=== PATIENT | male | born 1960 | race American Indian/Alaskan Native ===

== ENCOUNTER 2018-08-11 10:16 | Inpatient (IN) | payer MEDICARE, MEDICAID ==
[~2018-08-11] VITALS: Ht 188 cm; Wt 167.8 kg
[2018-08-11] MEDS ORDERED: pantoprazole 40 MG vial IV ONE (10:45)
[2018-08-11 10:50] LABS: ABG BASE EXCESS 11.5 mmol/L (-2.0-3.0); ABG OXYGEN SATURATION 94.7 % (95-98); ABG PCO2 (T) 76.7 mmHg (35.0-48.0); ABG PH (T) 7.324 (7.350-7.450); ALLEN'S TEST Positive; FCOHb 1.3 % (0.5-1.5); FMetHb 0.2 % (0.3-1.12); FO2Hb 93.3 % (94-100); TOTAL HEMOGLOBIN 7.4 G/dl (14.0-18.0)
[2018-08-11] MEDS ORDERED: normal saline 1000ML IV soln IVB ONE ×2 (11:00→11:40)
[2018-08-11 11:23] LABS: MEAN CORPUSCULAR HEMOGLOBIN 29.2 PG (27.0-31.0); MEAN CORPUSCULAR HGB CONC 32.7 % (33.0-36.5); MEAN CORPUSCULAR VOLUME 89.3 FL (78-98); MEAN PLATELET VOLUME 9.6 FL (7.4-10.4); RED BLOOD COUNT 2.33 X10'6 (4.70-6.10); RED CELL DISTRIBUTION WIDTH 15.7 % (11.5-14.5); WHITE BLOOD COUNT 2.3 X10'3 (4.5-11.0)
[2018-08-11 11:27] LABS: CLARITY,URINE SLIGHTLY CLOUDY (Clear); COLOR,URINE YELLOW (Yellow); GLUCOSE, URINE NEGATIVE (Neg); KETONES,URINE TRACE mg/dl (Neg); LEUKOCYTE ESTERASE ,URINE NEGATIVE (Neg); NITRITES, URINE NEGATIVE (Neg); OCCULT BLOOD,URINE SMALL (Neg); PH,URINE 5.5 (4.8-8.0); PROTEIN,URINE NEGATIVE (Neg); UROBILINOGEN,URINE 0.2 E.U/dL (0.2-1.0)
[2018-08-11 11:29] LABS: UA COLLECTION TYPE STRAIGHT CATH
[2018-08-11 11:34] LABS: HEMATOCRIT 20.8 % (42.0-52.0); HEMOGLOBIN 6.8 g/dl (14.0-17.9)
[2018-08-11 11:35] LABS: PLATELET COUNT 15 X10'3 (140-440)
[2018-08-11 11:38] LABS: HYALINE CASTS >30 /LPF (NEGATIVE); SQUAMOUS EPITHELIAL CELL,UR FEW /LPF (FEW)
[2018-08-11 11:39] LABS: BACTERIA,URINE 1+ /HPF (Neg); MUCUS STRANDS FEW /LPF (Neg); RBC,URINE 0-2 /HPF (0-2); RENAL CELLS, URINE FEW /HPF; TRANSITIONAL EPI CELLS,URINE FEW /HPF; WBC,URINE 0-4 /HPF (0-4)
[2018-08-11 11:40] LABS: INR 1.8 INR; PARTIAL THROMBOPLASTIN TIME 40 SECONDS (22-32); PROTHROMBIN TIME 17.8 SECONDS (9.0-12.0)
[2018-08-11 11:41] LABS: URINE AMPHETAMINE SCREEN NEGATIVE (Neg); URINE BARBITUATE SCREEN NEGATIVE (Neg); URINE BENZODIAZEPINES SCREEN NEGATIVE (Neg); URINE CANNABINOID SCREEN NEGATIVE (Neg); URINE COCAINE SCREEN NEGATIVE (Neg); URINE METHADONE SCREEN POSITIVE (Neg); URINE OPIATE SCREEN POSITIVE (Neg); URINE PHENCYCLIDINE SCREEN NEGATIVE (Neg)
[2018-08-11 11:42] LABS: ALANINE AMINOTRANSFERASE 16 U/L (12-78); ALBUMIN 2.5 G/DL (3.4-5.0); ALBUMIN/GLOBULIN RATIO 0.5 (1.1-1.5); ALKALINE PHOSPHATASE 64 IU/L (46-116); ANION GAP -1 (8-16); ASPARTATE AMINO TRANSFERASE 16 U/L (10-37); BILIRUBIN,TOTAL 1.8 MG/DL (0.1-1.0); BLOOD UREA NITROGEN 27 MG/DL (7-18); BUN/CREATININE RATIO 20.9 (5.4-32.0); CALCIUM 8.2 MG/DL (8.5-10.1); CHLORIDE 105 MMOL/L (99-107); CREATININE 1.29 MG/DL (0.60-1.10); POTASSIUM 4.2 MMOL/L (3.5-5.1); SODIUM 142 MMOL/L (135-145); TOTAL CARBON DIOXIDE 37.9 MMOL/L (24-32); TOTAL PROTEIN 7.4 G/DL (6.4-8.2); eGFR 57 ML/MIN
[2018-08-11 11:44] LABS: ANISOCYTOSIS 1+; PLATELET ESTIMATE DECREASED; TOTAL CELLS COUNTED 100
[2018-08-11 11:49] LABS: ACETAMINOPHEN < 2.0 UG/ML (10-30); ETHANOL < 0.010 GM/DL (0.0-0.010); GLUCOSE 104 MG/DL (70-104); MAGNESIUM 1.7 MG/DL (1.5-2.4)
[2018-08-11] MEDS ORDERED: sodium bicarbonate (8.4%) 1 mEq/ml syringe ONE (14:00)
[2018-08-11] MEDS ORDERED: epiNEPHrine 0.1mg/ml 10ml syringe ONE (14:00)
[2018-08-11 14:43] VITALS: BP 148/77
[2018-08-11 15:09] VITALS: BP 102/59
[2018-08-11] MEDS ORDERED: piperacillin/tazo 4.5gm/100ml 100 ML IV ONE (15:35)
[2018-08-11] MEDS ORDERED: piperacillin/tazo 4.5gm/100ml 100 ML IV SCH (15:35)
[2018-08-11 15:54] VITALS: BP 133/53
[2018-08-11 16:14] VITALS: BP_SYST 125; BP_SYST 133; BP_DIAS 53; BP_DIAS 62
[2018-08-11 16:35] VITALS: BP 131/70
[2018-08-11] MEDS ORDERED: mag hydrox/Alum hydrox/simeth 30ml oral suspension PO PRN (16:35)
[2018-08-11] MEDS ORDERED: morphine 2 MG/ML inj. syringe IV PRN ×2 (16:35)
[2018-08-11] MEDS ORDERED: ondansetron/PF 4mg/2ml inj IV PRN (16:35)
[2018-08-11] MEDS ORDERED: magnesium hydroxide 30ml (MOM) UD suspension PO PRN (16:35)
[2018-08-11 17:15] VITALS: BP 125/65
[2018-08-11] MEDS: pantoprazole 40 MG vial IV SCH (20:47)
[2018-08-11] MEDS: lactulose 20gm/30ml cup PO SCH (20:47)
[2018-08-11] MEDS: furosemide 40mg/4ml inj IV SCH (22:19)
[2018-08-11] MEDS: HYDROcodone/acetaminophen 5mg/325mg tablet PO PRN (22:19)
[2018-08-12] VITALS (14 sets, daily range): BP systolic 83–138; BP diastolic 47–86
[2018-08-12 01:40] LABS: ABG BASE EXCESS 3.7 mmol/L (-2.0-3.0); ABG HCO3 33.9 mmol/L (22.0-26.0); ABG OXYGEN SATURATION 91.9 % (95-98); ABG PCO2 (T) 80.1 mmHg (35.0-48.0); ABG PH (T) 7.226 (7.350-7.450); ABG PO2 (T) 61.1 mmHg (83-108); ALLEN'S TEST Positive; FCOHb 1.1 % (0.5-1.5); FMetHb 0.3 % (0.3-1.12); FO2Hb 90.6 % (94-100); MINUTE VOLUME 8 L/min; PATIENT TEMPERATURE 33.7; PEEP 5 cm H2O; RESPIRATORY RATE 14 b/min; RESPIRATORY RATE (OBSERVED) 14 b/min; TIDAL VOLUME 500 mL; TOTAL HEMOGLOBIN 9.9 G/dl (14.0-18.0)
[2018-08-12] MEDS: lactulose 20gm/30ml cup PO SCH ×4 (02:00→20:00)
[2018-08-12] MEDS ORDERED: CISatracurium besylate inj. 200 MG in normal saline 250ml IV soln 180 ML IV PRN (02:42)
[2018-08-12] MEDS ORDERED: CISatracurium **Bolus** 2 mg/ml inj IV PRN (02:45)
[2018-08-12] MEDS: FENTANYL-0.9 % NACL/PF 100 ML IV PRN ×5 (02:53→22:31)
[2018-08-12] MEDS: midazolam 100mg in NS 100ml 100 ML IV PRN ×3 (02:55→17:16)
[2018-08-12 04:16] LABS: ABG HCO3 38.3 mmol/L (22.0-26.0); ABG OXYGEN SATURATION 95.9 % (95-98); ABG PCO2 (T) 78.2 mmHg (35.0-48.0); ABG PH (T) 7.306 (7.350-7.450); ALLEN'S TEST Positive; FCOHb 1.4 % (0.5-1.5); FMetHb 0.1 % (0.3-1.12); FO2Hb 94.5 % (94-100); MINUTE VOLUME 8 L/min; PATIENT TEMPERATURE 36.5; PEEP 5 cm H2O; RESPIRATORY RATE 18 b/min; RESPIRATORY RATE (OBSERVED) 18 b/min; TOTAL HEMOGLOBIN 8.9 G/dl (14.0-18.0)
[2018-08-12 05:23] LABS: BASOPHILS % (AUTO) 0.1 % (0-1); EOSINOPHILS % (AUTO) 0.9 % (0-6); HEMATOCRIT 24.5 % (42.0-52.0); HEMOGLOBIN 8.2 g/dl (14.0-17.9); LYMPHOCYTES # (AUTO) 0.2 X10'3 (1.1-4.8); LYMPHOCYTES % (AUTO) 5.2 % (21-51); MEAN CORPUSCULAR HEMOGLOBIN 29.6 PG (27.0-31.0); MEAN CORPUSCULAR HGB CONC 33.3 % (33.0-36.5); MEAN CORPUSCULAR VOLUME 88.7 FL (78-98); MEAN PLATELET VOLUME 7.8 FL (7.4-10.4); MONOCYTES # (AUTO) 0.7 X10'3 (0-0.9); MONOCYTES % (AUTO) 17.1 % (2-12); NEUTROPHILS # (AUTO) 3.3 X10'3 (1.8-7.7); NEUTROPHILS % (AUTO) 76.7 % (42-75); RED BLOOD COUNT 2.76 X10'6 (4.70-6.10); RED CELL DISTRIBUTION WIDTH 15.7 % (11.5-14.5); WHITE BLOOD COUNT 4.3 X10'3 (4.5-11.0)
[2018-08-12 05:29] LABS: PLATELET COUNT 27 X10'3 (140-440)
[2018-08-12 05:39] LABS: ALANINE AMINOTRANSFERASE 14 U/L (12-78); ALBUMIN 2.6 G/DL (3.4-5.0); ALKALINE PHOSPHATASE 69 IU/L (46-116); ANION GAP 2 (8-16); CHLORIDE 103 MMOL/L (99-107); CREATININE 1.28 MG/DL (0.60-1.10); POTASSIUM 4.4 MMOL/L (3.5-5.1); SODIUM 142 MMOL/L (135-145); TOTAL CARBON DIOXIDE 36.8 MMOL/L (24-32); eGFR 58 ML/MIN
[2018-08-12 05:42] LABS: CREATINE KINASE 62 U/L (39-308); MAGNESIUM 1.5 MG/DL (1.5-2.4); TROPONIN I < 0.04 NG/ML (0.0-0.05)
[2018-08-12 05:44] LABS: INR 1.9 INR; PARTIAL THROMBOPLASTIN TIME 40 SECONDS (22-32)
[2018-08-12 06:06] LABS: ALBUMIN/GLOBULIN RATIO 0.5 (1.1-1.5); BILIRUBIN,TOTAL 3.4 MG/DL (0.1-1.0); BLOOD UREA NITROGEN 27 MG/DL (7-18); BUN/CREATININE RATIO 21.1 (5.4-32.0); CALCIUM 8.5 MG/DL (8.5-10.1); GLUCOSE 136 MG/DL (70-104); PHOSPHORUS 4.7 MG/DL (2.3-4.5); TOTAL PROTEIN 7.6 G/DL (6.4-8.2)
[2018-08-12 06:07] LABS: ASPARTATE AMINO TRANSFERASE 19 U/L (10-37)
[2018-08-12] MEDS: pantoprazole 40 MG vial IV SCH ×2 (08:19→20:00)
[2018-08-12] MEDS: levoFLOXACIN-Levaquin 750MG/D5 150 ML IV SCH (08:19)
[2018-08-12] MEDS: furosemide 40mg/4ml inj IV SCH ×2 (08:19→20:01)
[2018-08-12 09:41] LABS: OXYGEN SATURATION (MIXED VEN) 65.8 % (60-80); PO2 MIXED VENOUS (TEMP COR) 29.6 mmHg (35-46)
[2018-08-12 10:07] LABS: ABG BASE EXCESS 6.4 mmol/L (-2.0-3.0); ABG HCO3 34.3 mmol/L (22.0-26.0); ABG OXYGEN SATURATION 90.5 % (95-98); ABG PCO2 (T) 64.4 mmHg (35.0-48.0); ABG PH (T) 7.329 (7.350-7.450); ABG PO2 (T) 54.1 mmHg (83-108); ALLEN'S TEST Positive; FCOHb 1.5 % (0.5-1.5); FMetHb 0.2 % (0.3-1.12); MINUTE VOLUME 5 L/min; PATIENT TEMPERATURE 33.9; PEEP 5 cm H2O; RESPIRATORY RATE 18 b/min; RESPIRATORY RATE (OBSERVED) 18 b/min; TOTAL HEMOGLOBIN 8.5 G/dl (14.0-18.0)
[2018-08-12 10:42] LABS: OCCULT BLOOD STOOL POSITIVE (Neg)
[2018-08-12 11:32] LABS: ALBUMIN 2.6 G/DL (3.4-5.0); ANION GAP 0 (8-16); BLOOD UREA NITROGEN 28 MG/DL (7-18); BUN/CREATININE RATIO 20.1 (5.4-32.0); CALCIUM 8.3 MG/DL (8.5-10.1); CHLORIDE 102 MMOL/L (99-107); CREATINE KINASE 61 U/L (39-308); CREATININE 1.39 MG/DL (0.60-1.10); MAGNESIUM 1.5 MG/DL (1.5-2.4); POTASSIUM 4.1 MMOL/L (3.5-5.1); SODIUM 140 MMOL/L (135-145); TOTAL CARBON DIOXIDE 37.6 MMOL/L (24-32); TROPONIN I 0.04 NG/ML (0.0-0.05); eGFR 52 ML/MIN
[2018-08-12 11:34] LABS: GLUCOSE 143 MG/DL (70-104)
[2018-08-12] MEDS ORDERED: FLU VACC QUAD 2018(5 YR UP)/PF 60 MCG/0.5 ML SYRINGE IM ONE (17:00)
[2018-08-12] MEDS ORDERED: DOCU1ENE3 RC (17:07)
[2018-08-12] MEDS ORDERED: ZIN220C PO (17:07)
[2018-08-12] MEDS ORDERED: HYDR-3965 PO (17:07)
[2018-08-12] MEDS ORDERED: PROP10TA10 PO (17:07)
[2018-08-12] MEDS ORDERED: MAGN70TA2 PO (17:07)
[2018-08-12] MEDS ORDERED: LIDOCAINE 4% TOP (17:07)
[2018-08-12] MEDS ORDERED: SODI30SP3 BOTHNARES (17:07)
[2018-08-12] MEDS ORDERED: SODI473S26 MC (17:07)
[2018-08-12] MEDS ORDERED: POLY17PO10 PO (17:07)
[2018-08-12] MEDS ORDERED: QUET25TA PO (17:07)
[2018-08-12] MEDS ORDERED: PANT-47 PO (17:07)
[2018-08-12] MEDS ORDERED: FURO-149 PO (17:07)
[2018-08-12] MEDS ORDERED: RIFA550T PO (17:07)
[2018-08-12] MEDS ORDERED: LORA2TAB96 PO (17:07)
[2018-08-12] MEDS ORDERED: MELA3TAB PO (17:07)
[2018-08-12] MEDS ORDERED: LACT10SO PO (17:07)
[2018-08-12] MEDS ORDERED: FLO0.4C PO (17:07)
[2018-08-12 17:10] LABS: OXYGEN SATURATION (MIXED VEN) 41.3 % (60-80); PO2 MIXED VENOUS (TEMP COR) 14.5 mmHg (35-46)
[2018-08-12 17:15] LABS: ABG BASE EXCESS 9.8 mmol/L (-2.0-3.0); ABG HCO3 32.3 mmol/L (22.0-26.0); ABG OXYGEN SATURATION 95.1 % (95-98); ABG PCO2 (T) 29.7 mmHg (35.0-48.0); ABG PH (T) 7.644 (7.350-7.450); ABG PO2 (T) 51.5 mmHg (83-108); ALLEN'S TEST Positive; FCOHb 1.1 % (0.5-1.5); FMetHb 0.3 % (0.3-1.12); FO2Hb 93.8 % (94-100); MINUTE VOLUME 16 L/min; PATIENT TEMPERATURE 33.5; PEEP 5 cm H2O; RESPIRATORY RATE (OBSERVED) 18 b/min; TOTAL HEMOGLOBIN 7.8 G/dl (14.0-18.0)
[2018-08-12 20:28] LABS: ALBUMIN 2.3 G/DL (3.4-5.0); ANION GAP 4 (8-16); BLOOD UREA NITROGEN 28 MG/DL (7-18); BUN/CREATININE RATIO 18.3 (5.4-32.0); CALCIUM 8.1 MG/DL (8.5-10.1); CHLORIDE 103 MMOL/L (99-107); CREATINE KINASE 68 U/L (39-308); CREATININE 1.53 MG/DL (0.60-1.10); MAGNESIUM 1.3 MG/DL (1.5-2.4); POTASSIUM 3.4 MMOL/L (3.5-5.1); SODIUM 142 MMOL/L (135-145); TOTAL CARBON DIOXIDE 34.8 MMOL/L (24-32); TROPONIN I < 0.04 NG/ML (0.0-0.05); eGFR 47 ML/MIN
[2018-08-12 20:33] LABS: GLUCOSE 116 MG/DL (70-104)
[2018-08-13] VITALS (29 sets, daily range): BP systolic 95–135; BP diastolic 46–81
[2018-08-13 00:31] LABS: OXYGEN SATURATION (MIXED VEN) 43.9 % (60-80); PO2 MIXED VENOUS (TEMP COR) 19.5 mmHg (35-46)
[2018-08-13 00:31] LABS: ABG BASE EXCESS 8.4 mmol/L (-2.0-3.0); ABG HCO3 34.3 mmol/L (22.0-26.0); ABG OXYGEN SATURATION 94.2 % (95-98); ABG PH (T) 7.455 (7.350-7.450); ABG PO2 (T) 60.7 mmHg (83-108); ALLEN'S TEST Positive; FCOHb 0.4 % (0.5-1.5); FMetHb 0.2 % (0.3-1.12); FO2Hb 93.6 % (94-100); MINUTE VOLUME 6 L/min; PATIENT TEMPERATURE 33.2; PEEP 5 cm H2O; RESPIRATORY RATE 14 b/min; RESPIRATORY RATE (OBSERVED) 14 b/min; TOTAL HEMOGLOBIN 8.2 G/dl (14.0-18.0)
[2018-08-13 01:44] LABS: ALBUMIN 2.3 G/DL (3.4-5.0); ANION GAP 3 (8-16); BLOOD UREA NITROGEN 30 MG/DL (7-18); BUN/CREATININE RATIO 19.6 (5.4-32.0); CALCIUM 8.4 MG/DL (8.5-10.1); CHLORIDE 104 MMOL/L (99-107); CREATINE KINASE 73 U/L (39-308); CREATININE 1.53 MG/DL (0.60-1.10); MAGNESIUM 1.4 MG/DL (1.5-2.4); POTASSIUM 3.3 MMOL/L (3.5-5.1); SODIUM 141 MMOL/L (135-145); TOTAL CARBON DIOXIDE 34.3 MMOL/L (24-32); TROPONIN I < 0.04 NG/ML (0.0-0.05); eGFR 47 ML/MIN
[2018-08-13 01:50] LABS: GLUCOSE 116 MG/DL (70-104)
[2018-08-13] MEDS: lactulose 20gm/30ml cup PO SCH ×4 (02:02→19:58)
[2018-08-13 03:52] LABS: BASOPHILS % (AUTO) 0.7 % (0-1); EOSINOPHILS % (AUTO) 1.5 % (0-6); HEMOGLOBIN 7.2 g/dl (14.0-17.9); LYMPHOCYTES # (AUTO) 0.3 X10'3 (1.1-4.8); LYMPHOCYTES % (AUTO) 16.1 % (21-51); MEAN CORPUSCULAR HEMOGLOBIN 29.5 PG (27.0-31.0); MEAN CORPUSCULAR HGB CONC 33.6 % (33.0-36.5); MEAN CORPUSCULAR VOLUME 87.8 FL (78-98); MEAN PLATELET VOLUME 8.6 FL (7.4-10.4); MONOCYTES # (AUTO) 0.4 X10'3 (0-0.9); MONOCYTES % (AUTO) 20.9 % (2-12); NEUTROPHILS % (AUTO) 60.8 % (42-75); RED BLOOD COUNT 2.45 X10'6 (4.70-6.10); RED CELL DISTRIBUTION WIDTH 15.8 % (11.5-14.5); WHITE BLOOD COUNT 1.7 X10'3 (4.5-11.0)
[2018-08-13 04:08] LABS: INR 2.4 INR; PARTIAL THROMBOPLASTIN TIME 51 SECONDS (22-32)
[2018-08-13 04:26] LABS: HEMATOCRIT 21.5 % (42.0-52.0); PLATELET COUNT 15 X10'3 (140-440)
[2018-08-13] MEDS: FENTANYL-0.9 % NACL/PF 100 ML IV PRN ×2 (04:53→16:31)
[2018-08-13 05:02] LABS: TOTAL CELLS COUNTED 100
[2018-08-13 05:03] LABS: PLATELET ESTIMATE DECREASED
[2018-08-13 05:05] LABS: ANISOCYTOSIS 1+; ELLIPTOCYTES FEW; TEAR DROP CELLS FEW
[2018-08-13] MEDS: pantoprazole 40 MG vial IV SCH ×2 (07:32→19:58)
[2018-08-13] MEDS: mineral oil/petrolatum ophthal oint EACHEYE SCH ×3 (07:32→20:07)
[2018-08-13] MEDS: furosemide 40mg/4ml inj IV SCH ×2 (07:32→19:58)
[2018-08-13] MEDS: levoFLOXACIN-Levaquin 750MG/D5 150 ML IV SCH (07:33)
[2018-08-13] MEDS: midazolam 100mg in NS 100ml 100 ML IV PRN (12:35)
[2018-08-13 14:56] LABS: ABG BASE EXCESS 12.2 mmol/L (-2.0-3.0); ABG HCO3 36.2 mmol/L (22.0-26.0); ABG OXYGEN SATURATION 92.5 % (95-98); ABG PCO2 (T) 41.2 mmHg (35.0-48.0); ABG PH (T) 7.554 (7.350-7.450); ABG PO2 (T) 55.1 mmHg (83-108); ALLEN'S TEST Positive; FCOHb 0.2 % (0.5-1.5); FMetHb 0.1 % (0.3-1.12); FO2Hb 92.2 % (94-100); MINUTE VOLUME 9 L/min; PEEP 5 cm H2O; RESPIRATORY RATE 14 b/min; TOTAL HEMOGLOBIN 7.9 G/dl (14.0-18.0)
[2018-08-13 15:00] LABS: OXYGEN SATURATION (MIXED VEN) 74.9 % (60-80); PO2 MIXED VENOUS (TEMP COR) 30.8 mmHg (35-46)
[2018-08-13 19:57] LABS: BASOPHILS % (AUTO) 0.6 % (0-1); EOSINOPHILS % (AUTO) 0.6 % (0-6); HEMOGLOBIN 7.2 g/dl (14.0-17.9); LYMPHOCYTES # (AUTO) 0.1 X10'3 (1.1-4.8); LYMPHOCYTES % (AUTO) 5.4 % (21-51); MEAN CORPUSCULAR HEMOGLOBIN 29.2 PG (27.0-31.0); MEAN CORPUSCULAR HGB CONC 33.7 % (33.0-36.5); MEAN CORPUSCULAR VOLUME 86.6 FL (78-98); MONOCYTES # (AUTO) 0.4 X10'3 (0-0.9); MONOCYTES % (AUTO) 19.8 % (2-12); NEUTROPHILS # (AUTO) 1.4 X10'3 (1.8-7.7); NEUTROPHILS % (AUTO) 73.6 % (42-75); RED BLOOD COUNT 2.46 X10'6 (4.70-6.10); RED CELL DISTRIBUTION WIDTH 15.3 % (11.5-14.5); WHITE BLOOD COUNT 1.9 X10'3 (4.5-11.0)
[2018-08-13 20:14] LABS: ALANINE AMINOTRANSFERASE 14 U/L (12-78); ALBUMIN 2.3 G/DL (3.4-5.0); ALBUMIN/GLOBULIN RATIO 0.5 (1.1-1.5); ALKALINE PHOSPHATASE 60 IU/L (46-116); ANION GAP 4 (8-16); ASPARTATE AMINO TRANSFERASE 20 U/L (10-37); BILIRUBIN,TOTAL 3.1 MG/DL (0.1-1.0); BLOOD UREA NITROGEN 34 MG/DL (7-18); BUN/CREATININE RATIO 18.1 (5.4-32.0); CALCIUM 8.6 MG/DL (8.5-10.1); CHLORIDE 103 MMOL/L (99-107); CREATINE KINASE 49 U/L (39-308); CREATININE 1.88 MG/DL (0.60-1.10); MAGNESIUM 1.2 MG/DL (1.5-2.4); POTASSIUM 3.3 MMOL/L (3.5-5.1); SODIUM 142 MMOL/L (135-145); TOTAL CARBON DIOXIDE 34.6 MMOL/L (24-32); TOTAL PROTEIN 6.6 G/DL (6.4-8.2); eGFR 37 ML/MIN
[2018-08-13 20:16] LABS: HEMATOCRIT 21.3 % (42.0-52.0)
[2018-08-13 20:17] LABS: PLATELET COUNT 35 X10'3 (140-440)
[2018-08-13 20:26] LABS: GLUCOSE 84 MG/DL (70-104)
[2018-08-13] MEDS ORDERED: sodium phosphate inj. 30 MMOL in dextrose 5%-water 250 ML IV ONE (20:35)
[2018-08-13] MEDS: magnesium 2GM in 50ml NS 50 ML IV PRN (21:47)
[2018-08-14] VITALS (27 sets, daily range): BP systolic 100–143; BP diastolic 49–77
[2018-08-14 00:04] LABS: TOTAL CELLS COUNTED 100
[2018-08-14 00:05] LABS: ANISOCYTOSIS 1+; ELLIPTOCYTES FEW; PLATELET ESTIMATE DECREASED; TEAR DROP CELLS FEW
[2018-08-14] MEDS: midazolam 100mg in NS 100ml 100 ML IV PRN (01:19)
[2018-08-14] MEDS: FENTANYL-0.9 % NACL/PF 100 ML IV PRN (01:20)
[2018-08-14] MEDS: lactulose 20gm/30ml cup PO SCH ×4 (02:22→20:22)
[2018-08-14] MEDS: mineral oil/petrolatum ophthal oint EACHEYE SCH ×4 (02:22→20:23)
[2018-08-14 03:50] LABS: ABG BASE EXCESS 12.5 mmol/L (-2.0-3.0); ABG HCO3 36.8 mmol/L (22.0-26.0); ABG PCO2 (T) 46.8 mmHg (35.0-48.0); ABG PH (T) 7.513 (7.350-7.450); ABG PO2 (T) 74.8 mmHg (83-108); ALLEN'S TEST Positive; FCOHb 0.3 % (0.5-1.5); FMetHb 0.2 % (0.3-1.12); FO2Hb 94.5 % (94-100); MINUTE VOLUME 10 L/min; PATIENT TEMPERATURE 36.7; PEEP 5 cm H2O; RESPIRATORY RATE 14 b/min; RESPIRATORY RATE (OBSERVED) 14 b/min; TOTAL HEMOGLOBIN 8.1 G/dl (14.0-18.0)
[2018-08-14 03:59] LABS: HEMATOCRIT 22.2 % (42.0-52.0); HEMOGLOBIN 7.4 g/dl (14.0-17.9); MEAN CORPUSCULAR HEMOGLOBIN 29.2 PG (27.0-31.0); MEAN CORPUSCULAR HGB CONC 33.4 % (33.0-36.5); MEAN CORPUSCULAR VOLUME 87.3 FL (78-98); MEAN PLATELET VOLUME 8.3 FL (7.4-10.4); RED BLOOD COUNT 2.54 X10'6 (4.70-6.10); RED CELL DISTRIBUTION WIDTH 15.3 % (11.5-14.5); WHITE BLOOD COUNT 2.8 X10'3 (4.5-11.0)
[2018-08-14 04:19] LABS: ALBUMIN 2.3 G/DL (3.4-5.0); ANION GAP 2 (8-16); BLOOD UREA NITROGEN 33 MG/DL (7-18); CALCIUM 8.4 MG/DL (8.5-10.1); CHLORIDE 105 MMOL/L (99-107); CREATINE KINASE 37 U/L (39-308); CREATININE 1.94 MG/DL (0.60-1.10); PHOSPHORUS 2.3 MG/DL (2.3-4.5); POTASSIUM 3.1 MMOL/L (3.5-5.1); SODIUM 143 MMOL/L (135-145); TOTAL CARBON DIOXIDE 35.9 MMOL/L (24-32); eGFR 36 ML/MIN
[2018-08-14 04:24] LABS: PLATELET COUNT 42 X10'3 (140-440)
[2018-08-14 04:44] LABS: GLUCOSE 101 MG/DL (70-104); INR 2.1 INR; PARTIAL THROMBOPLASTIN TIME 46 SECONDS (22-32); PROTHROMBIN TIME 20.9 SECONDS (9.0-12.0)
[2018-08-14 05:47] LABS: ANISOCYTOSIS 1+; PLATELET ESTIMATE DECREASED; TOTAL CELLS COUNTED 100
[2018-08-14 05:48] LABS: ELLIPTOCYTES FEW; POLYCHROMASIA FEW; TEAR DROP CELLS FEW
[2018-08-14 06:59] LABS: MAGNESIUM 1.7 MG/DL (1.5-2.4)
[2018-08-14] MEDS: furosemide 40mg/4ml inj IV SCH ×3 (08:00→20:23)
[2018-08-14] MEDS: pantoprazole 40 MG vial IV SCH ×2 (08:15→20:23)
[2018-08-14] MEDS: levoFLOXACIN-Levaquin 750MG/D5 150 ML IV SCH (08:15)
[2018-08-14] MEDS ORDERED: potassium Cl oral solution 20 MEQ/15 ML PO ONE (08:30)
[2018-08-14 11:30] LABS: TOTAL PROTEIN,URINE RANDOM 30.2 MG/DL
[2018-08-14] MEDS: phytonadione inj. 10 MG in normal saline 100ml IV soln 99 ML IV SCH (11:51)
[2018-08-14] MEDS: metoclopramide 5 mg/ml inj IV SCH ×2 (15:56→23:55)
[2018-08-14 16:35] LABS: HEMATOCRIT 24.7 % (42.0-52.0); HEMOGLOBIN 8.3 g/dl (14.0-17.9); MEAN CORPUSCULAR HEMOGLOBIN 29.3 PG (27.0-31.0); MEAN CORPUSCULAR HGB CONC 33.5 % (33.0-36.5); MEAN CORPUSCULAR VOLUME 87.5 FL (78-98); MEAN PLATELET VOLUME 7.9 FL (7.4-10.4); RED BLOOD COUNT 2.82 X10'6 (4.70-6.10); RED CELL DISTRIBUTION WIDTH 16.1 % (11.5-14.5); WHITE BLOOD COUNT 3.7 X10'3 (4.5-11.0)
[2018-08-14 16:47] LABS: PLATELET COUNT 46 X10'3 (140-440)
[2018-08-14] MEDS ORDERED: midazolam 2 mg/2 ml injection IV PRN (16:50)
[2018-08-14] MEDS: potassium Cl oral solution 20 MEQ/15 ML PO SCH (20:22)
[2018-08-15] VITALS (26 sets, daily range): BP systolic 94–123; BP diastolic 42–81
[2018-08-15] MEDS: mineral oil/petrolatum ophthal oint EACHEYE SCH ×4 (02:04→21:22)
[2018-08-15] MEDS: lactulose 20gm/30ml cup PO SCH ×4 (02:04→21:23)
[2018-08-15 02:54] LABS: HEMATOCRIT 22.1 % (42.0-52.0); HEMOGLOBIN 7.3 g/dl (14.0-17.9); MEAN CORPUSCULAR HEMOGLOBIN 28.9 PG (27.0-31.0); MEAN CORPUSCULAR VOLUME 87.6 FL (78-98); MEAN PLATELET VOLUME 7.8 FL (7.4-10.4); RED BLOOD COUNT 2.53 X10'6 (4.70-6.10); RED CELL DISTRIBUTION WIDTH 15.8 % (11.5-14.5); WHITE BLOOD COUNT 3.2 X10'3 (4.5-11.0)
[2018-08-15 03:05] LABS: PLATELET COUNT 43 X10'3 (140-440)
[2018-08-15 03:14] LABS: ALBUMIN 2.1 G/DL (3.4-5.0); ANION GAP 3 (8-16); BLOOD UREA NITROGEN 35 MG/DL (7-18); BUN/CREATININE RATIO 17.2 (5.4-32.0); CALCIUM 8.4 MG/DL (8.5-10.1); CHLORIDE 107 MMOL/L (99-107); CREATININE 2.04 MG/DL (0.60-1.10); PHOSPHORUS 2.6 MG/DL (2.3-4.5); POTASSIUM 3.1 MMOL/L (3.5-5.1); SODIUM 146 MMOL/L (135-145); TOTAL CARBON DIOXIDE 35.7 MMOL/L (24-32); eGFR 34 ML/MIN
[2018-08-15 03:18] LABS: PARTIAL THROMBOPLASTIN TIME 45 SECONDS (22-32); PROTHROMBIN TIME 19.7 SECONDS (9.0-12.0)
[2018-08-15 03:28] LABS: GLUCOSE 120 MG/DL (70-104)
[2018-08-15 04:26] LABS: ABG BASE EXCESS 10.9 mmol/L (-2.0-3.0); ABG HCO3 34.4 mmol/L (22.0-26.0); ABG OXYGEN SATURATION 94.1 % (95-98); ABG PCO2 (T) 42.9 mmHg (35.0-48.0); ABG PH (T) 7.526 (7.350-7.450); ALLEN'S TEST Positive; FCOHb 0.3 % (0.5-1.5); FMetHb 0.1 % (0.3-1.12); FO2Hb 93.7 % (94-100); MINUTE VOLUME 13 L/min; PATIENT TEMPERATURE 37.8; PEEP 5 cm H2O; RESPIRATORY RATE 14 b/min; RESPIRATORY RATE (OBSERVED) 15 b/min; TOTAL HEMOGLOBIN 7.8 G/dl (14.0-18.0)
[2018-08-15] MEDS ORDERED: potassium Cl 40MEQ/250ML bag 250 ML IV ONE (04:45)
[2018-08-15 05:06] LABS: ANISOCYTOSIS 1+; NUCLEATED RED BLOOD CELLS 1 /100WBC (0-0); PLATELET ESTIMATE DECREASED; TOTAL CELLS COUNTED 100
[2018-08-15 05:07] LABS: POLYCHROMASIA FEW
[2018-08-15] MEDS: potassium Cl oral solution 20 MEQ/15 ML PO SCH ×2 (08:37→21:23)
[2018-08-15] MEDS: pantoprazole 40 MG vial IV SCH ×2 (08:37→21:23)
[2018-08-15] MEDS: levoFLOXACIN-Levaquin 750MG/D5 150 ML IV SCH (08:37)
[2018-08-15] MEDS: metoclopramide 5 mg/ml inj IV SCH (08:37)
[2018-08-15] MEDS: phytonadione inj. 10 MG in normal saline 100ml IV soln 99 ML IV SCH (10:07)
[2018-08-15] MEDS: furosemide 40mg/4ml inj IV SCH (11:15)
[2018-08-15] MEDS: fentaNYL/PF 50MCG/1 ML 2ML syringe IV PRN (11:16)
[2018-08-15] MEDS: dexmedetomidin/NS 400mcg/100ml 100 ML IV SCH (13:26)
[2018-08-15 14:51] LABS: OCCULT BLOOD STOOL NEGATIVE (Neg)
[2018-08-15] MEDS: furosemide 10 MG/1 ML 10ml inj IV SCH ×2 (15:57→23:36)
[2018-08-15 17:02] LABS: HEMATOCRIT 23.1 % (42.0-52.0); HEMOGLOBIN 7.7 g/dl (14.0-17.9); MEAN CORPUSCULAR HEMOGLOBIN 29.5 PG (27.0-31.0); MEAN CORPUSCULAR HGB CONC 33.3 % (33.0-36.5); MEAN CORPUSCULAR VOLUME 88.7 FL (78-98); MEAN PLATELET VOLUME 8.9 FL (7.4-10.4); RED CELL DISTRIBUTION WIDTH 16.4 % (11.5-14.5); WHITE BLOOD COUNT 2.1 X10'3 (4.5-11.0)
[2018-08-15 17:14] LABS: PLATELET COUNT 27 X10'3 (140-440)
[2018-08-15] MEDS ORDERED: magnesium 2GM in 50ml NS 50 ML IV PRN (17:50)
[2018-08-15] MEDS ORDERED: potassium Cl 20 mEq SR tablet PO PRN ×2 (17:50)
[2018-08-15] MEDS ORDERED: magnesium 4gm in 100ml NS 100 ML IV PRN (17:50)
[2018-08-15] MEDS: potassium Cl 40MEQ/250ML bag 250 ML IV PRN (20:38)
[2018-08-16] VITALS (24 sets, daily range): BP systolic 91–111; BP diastolic 52–70
[2018-08-16] MEDS: lactulose 20gm/30ml cup PO SCH ×4 (02:00→20:53)
[2018-08-16 02:42] LABS: HEMATOCRIT 23.7 % (42.0-52.0); HEMOGLOBIN 7.9 g/dl (14.0-17.9); MEAN CORPUSCULAR HEMOGLOBIN 29.7 PG (27.0-31.0); MEAN CORPUSCULAR HGB CONC 33.4 % (33.0-36.5); MEAN CORPUSCULAR VOLUME 88.7 FL (78-98); MEAN PLATELET VOLUME 9.2 FL (7.4-10.4); RED BLOOD COUNT 2.68 X10'6 (4.70-6.10); RED CELL DISTRIBUTION WIDTH 16.4 % (11.5-14.5); WHITE BLOOD COUNT 1.9 X10'3 (4.5-11.0)
[2018-08-16 02:45] LABS: PLATELET COUNT 27 X10'3 (140-440)
[2018-08-16 02:54] LABS: ANION GAP 4 (8-16); BLOOD UREA NITROGEN 37 MG/DL (7-18); BUN/CREATININE RATIO 19.2 (5.4-32.0); CALCIUM 8.1 MG/DL (8.5-10.1); CHLORIDE 110 MMOL/L (99-107); CREATININE 1.93 MG/DL (0.60-1.10); MAGNESIUM 1.5 MG/DL (1.5-2.4); PHOSPHORUS 2.5 MG/DL (2.3-4.5); POTASSIUM 3.1 MMOL/L (3.5-5.1); PREALBUMIN 6.4 MG/DL (19-36); SODIUM 148 MMOL/L (135-145); TOTAL CARBON DIOXIDE 34.1 MMOL/L (24-32); eGFR 36 ML/MIN
[2018-08-16 03:03] LABS: INR 1.9 INR; PARTIAL THROMBOPLASTIN TIME 45 SECONDS (22-32); PROTHROMBIN TIME 18.3 SECONDS (9.0-12.0)
[2018-08-16 03:07] LABS: GLUCOSE 128 MG/DL (70-104)
[2018-08-16 03:26] LABS: ABG HCO3 36.1 mmol/L (22.0-26.0); ABG OXYGEN SATURATION 95.4 % (95-98); ABG PCO2 (T) 50.9 mmHg (35.0-48.0); ABG PH (T) 7.466 (7.350-7.450); ABG PO2 (T) 82.9 mmHg (83-108); ALLEN'S TEST Positive; FCOHb 0.3 % (0.5-1.5); FO2Hb 95.1 % (94-100); MINUTE VOLUME 10 L/min; PATIENT TEMPERATURE 36.4; PEEP 5 cm H2O; RESPIRATORY RATE 14 b/min; RESPIRATORY RATE (OBSERVED) 14 b/min; TOTAL HEMOGLOBIN 8.6 G/dl (14.0-18.0)
[2018-08-16] MEDS: mineral oil/petrolatum ophthal oint EACHEYE SCH ×4 (03:34→20:54)
[2018-08-16 03:55] LABS: TOTAL CELLS COUNTED 100
[2018-08-16 03:56] LABS: ANISOCYTOSIS 1+; PLATELET ESTIMATE DECREASED; POLYCHROMASIA FEW
[2018-08-16] MEDS: potassium Cl 40MEQ/250ML bag 250 ML IV PRN (04:48)
[2018-08-16] MEDS: dexmedetomidin/NS 400mcg/100ml 100 ML IV SCH ×3 (04:52→16:06)
[2018-08-16] MEDS: levoFLOXACIN-Levaquin 750MG/D5 150 ML IV SCH (08:30)
[2018-08-16] MEDS: pantoprazole 40 MG vial IV SCH ×2 (08:31→20:54)
[2018-08-16] MEDS: potassium Cl oral solution 20 MEQ/15 ML PO SCH ×2 (08:32→20:54)
[2018-08-16] MEDS: furosemide 10 MG/1 ML 10ml inj IV SCH ×2 (08:32→16:04)
[2018-08-16] MEDS: phytonadione inj. 10 MG in normal saline 100ml IV soln 99 ML IV SCH (09:46)
[2018-08-16] MEDS: fentaNYL/PF 50MCG/1 ML 2ML syringe IV PRN (14:24)
[2018-08-16 15:25] LABS: HEMATOCRIT 24.8 % (42.0-52.0); HEMOGLOBIN 8.2 g/dl (14.0-17.9); MEAN CORPUSCULAR HEMOGLOBIN 29.4 PG (27.0-31.0); MEAN CORPUSCULAR VOLUME 89.2 FL (78-98); MEAN PLATELET VOLUME 8.8 FL (7.4-10.4); RED BLOOD COUNT 2.78 X10'6 (4.70-6.10); RED CELL DISTRIBUTION WIDTH 16.4 % (11.5-14.5); WHITE BLOOD COUNT 2.3 X10'3 (4.5-11.0)
[2018-08-16 15:35] LABS: PLATELET COUNT 27 X10'3 (140-440)
[2018-08-16] MEDS: nystatin 15 GM powder TP SCH ×2 (16:04→21:37)
[2018-08-17] VITALS (26 sets, daily range): BP systolic 75–116; BP diastolic 45–84
[2018-08-17] MEDS: furosemide 10 MG/1 ML 10ml inj IV SCH ×3 (00:49→16:09)
[2018-08-17] MEDS: lactulose 20gm/30ml cup PO SCH ×4 (02:33→20:39)
[2018-08-17] MEDS: mineral oil/petrolatum ophthal oint EACHEYE SCH ×4 (02:33→20:40)
[2018-08-17] MEDS: fentaNYL/PF 50MCG/1 ML 2ML syringe IV PRN ×2 (03:08→17:25)
[2018-08-17 03:26] LABS: HEMATOCRIT 26.8 % (42.0-52.0); HEMOGLOBIN 8.7 g/dl (14.0-17.9); MEAN CORPUSCULAR HEMOGLOBIN 29.3 PG (27.0-31.0); MEAN CORPUSCULAR HGB CONC 32.6 % (33.0-36.5); MEAN CORPUSCULAR VOLUME 89.9 FL (78-98); MEAN PLATELET VOLUME 9.2 FL (7.4-10.4); RED BLOOD COUNT 2.98 X10'6 (4.70-6.10); RED CELL DISTRIBUTION WIDTH 16.6 % (11.5-14.5); WHITE BLOOD COUNT 2.5 X10'3 (4.5-11.0)
[2018-08-17 03:30] LABS: PLATELET COUNT 29 X10'3 (140-440)
[2018-08-17 03:32] LABS: MAGNESIUM 1.5 MG/DL (1.5-2.4); POTASSIUM 3.6 MMOL/L (3.5-5.1)
[2018-08-17 03:50] LABS: ABG BASE EXCESS 10.8 mmol/L (-2.0-3.0); ABG HCO3 35.5 mmol/L (22.0-26.0); ABG OXYGEN SATURATION 93.1 % (95-98); ABG PCO2 (T) 47.2 mmHg (35.0-48.0); ABG PH (T) 7.493 (7.350-7.450); ABG PO2 (T) 67.3 mmHg (83-108); ALLEN'S TEST Positive; FCOHb 0.3 % (0.5-1.5); FMetHb 0.2 % (0.3-1.12); FO2Hb 92.6 % (94-100); MINUTE VOLUME 9 L/min; PATIENT TEMPERATURE 36.5; PEEP 5 cm H2O; RESPIRATORY RATE 14 b/min; RESPIRATORY RATE (OBSERVED) 14 b/min; TOTAL HEMOGLOBIN 9.7 G/dl (14.0-18.0)
[2018-08-17] MEDS: dexmedetomidin/NS 400mcg/100ml 100 ML IV SCH ×4 (05:00→21:25)
[2018-08-17] MEDS: nystatin 15 GM powder TP SCH ×3 (07:55→21:25)
[2018-08-17] MEDS: pantoprazole 40 MG vial IV SCH ×2 (07:56→20:40)
[2018-08-17] MEDS: levoFLOXACIN-Levaquin 750MG/D5 150 ML IV SCH (07:56)
[2018-08-17] MEDS: potassium Cl oral solution 20 MEQ/15 ML PO SCH ×2 (07:57→20:40)
[2018-08-17] MEDS: methylnaltrexone br 12mg/0.6ml inj***SubQ only SQ SCH (07:57)
[2018-08-17] MEDS ORDERED: etomidate 2mg/ml inj. ONE (09:00)
[2018-08-17 10:30] LABS: ALANINE AMINOTRANSFERASE 13 U/L (12-78); ALBUMIN 2.1 G/DL (3.4-5.0); ALBUMIN/GLOBULIN RATIO 0.4 (1.1-1.5); ALKALINE PHOSPHATASE 77 IU/L (46-116); ANION GAP 5 (8-16); ASPARTATE AMINO TRANSFERASE 21 U/L (10-37); BILIRUBIN,TOTAL 2.2 MG/DL (0.1-1.0); BLOOD UREA NITROGEN 37 MG/DL (7-18); BUN/CREATININE RATIO 21.6 (5.4-32.0); CALCIUM 8.1 MG/DL (8.5-10.1); CHLORIDE 110 MMOL/L (99-107); CREATININE 1.71 MG/DL (0.60-1.10); MAGNESIUM 1.3 MG/DL (1.5-2.4); POTASSIUM 3.5 MMOL/L (3.5-5.1); SODIUM 150 MMOL/L (135-145); TOTAL CARBON DIOXIDE 35.3 MMOL/L (24-32); TOTAL PROTEIN 6.9 G/DL (6.4-8.2); eGFR 41 ML/MIN
[2018-08-17 10:31] LABS: GLUCOSE 133 MG/DL (70-104)
[2018-08-17] MEDS: midazolam 100mg in NS 100ml 100 ML IV PRN (20:26)
[2018-08-17] MEDS: FENTANYL-0.9 % NACL/PF 100 ML IV PRN (22:57)
[2018-08-17 23:21] LABS: ABG BASE EXCESS 10.7 mmol/L (-2.0-3.0); ABG HCO3 32.7 mmol/L (22.0-26.0); ABG OXYGEN SATURATION 92.5 % (95-98); ABG PCO2 (T) 32.6 mmHg (35.0-48.0); ABG PH (T) 7.617 (7.350-7.450); ABG PO2 (T) 58.3 mmHg (83-108); ALLEN'S TEST Positive; FCOHb 0.3 % (0.5-1.5); FMetHb 0.2 % (0.3-1.12); MINUTE VOLUME 14 L/min; PATIENT TEMPERATURE 36.4; PEEP 8 cm H2O; RESPIRATORY RATE 14 b/min; RESPIRATORY RATE (OBSERVED) 14 b/min; TOTAL HEMOGLOBIN 10.1 G/dl (14.0-18.0)
[2018-08-17] MEDS: ipratropium/albuterol 3ml nebule NEB SCH (23:26)
[2018-08-18] VITALS (23 sets, daily range): BP systolic 87–133; BP diastolic 48–73
[2018-08-18] MEDS ORDERED: NORepinephrine 8mg/ 250ml NS 250 ML IV PRN (00:14)
[2018-08-18 00:56] LABS: ABG BASE EXCESS 9.7 mmol/L (-2.0-3.0); ABG HCO3 35.4 mmol/L (22.0-26.0); ABG OXYGEN SATURATION 98.7 % (95-98); ABG PCO2 (T) 51.5 mmHg (35.0-48.0); ABG PH (T) 7.452 (7.350-7.450); ABG PO2 (T) 166.7 mmHg (83-108); ALLEN'S TEST Positive; FCOHb 0.3 % (0.5-1.5); FMetHb 0.2 % (0.3-1.12); FO2Hb 98.2 % (94-100); MINUTE VOLUME 7 L/min; PATIENT TEMPERATURE 36.2; PEEP 10 cm H2O; RESPIRATORY RATE 14 b/min; RESPIRATORY RATE (OBSERVED) 14 b/min; TIDAL VOLUME 500 mL; TOTAL HEMOGLOBIN 11.3 G/dl (14.0-18.0)
[2018-08-18 01:08] LABS: CLARITY,URINE CLEAR (Clear); COLOR,URINE YELLOW (Yellow); GLUCOSE, URINE NEGATIVE (Neg); KETONES,URINE NEGATIVE (Neg); LEUKOCYTE ESTERASE ,URINE SMALL (Neg); NITRITES, URINE NEGATIVE (Neg); OCCULT BLOOD,URINE TRACE-INTACT (Neg); PROTEIN,URINE NEGATIVE (Neg); UROBILINOGEN,URINE 0.2 E.U/dL (0.2-1.0)
[2018-08-18 01:08] LABS: BASOPHILS % (AUTO) 0.7 % (0-1); EOSINOPHILS # (AUTO) 0.1 X10'3 (0-0.9); EOSINOPHILS % (AUTO) 3.2 % (0-6); HEMATOCRIT 30.5 % (42.0-52.0); HEMOGLOBIN 10.2 g/dl (14.0-17.9); LYMPHOCYTES # (AUTO) 0.5 X10'3 (1.1-4.8); LYMPHOCYTES % (AUTO) 19.3 % (21-51); MEAN CORPUSCULAR HEMOGLOBIN 30.3 PG (27.0-31.0); MEAN CORPUSCULAR HGB CONC 33.4 % (33.0-36.5); MEAN CORPUSCULAR VOLUME 90.7 FL (78-98); MEAN PLATELET VOLUME 8.9 FL (7.4-10.4); MONOCYTES # (AUTO) 0.4 X10'3 (0-0.9); MONOCYTES % (AUTO) 17.2 % (2-12); NEUTROPHILS # (AUTO) 1.5 X10'3 (1.8-7.7); NEUTROPHILS % (AUTO) 59.6 % (42-75); RED BLOOD COUNT 3.36 X10'6 (4.70-6.10); RED CELL DISTRIBUTION WIDTH 16.3 % (11.5-14.5); WHITE BLOOD COUNT 2.5 X10'3 (4.5-11.0)
[2018-08-18 01:09] LABS: UA COLLECTION TYPE NON-SPECIFIED
[2018-08-18 01:15] LABS: PLATELET COUNT 40 X10'3 (140-440)
[2018-08-18 01:21] LABS: ALANINE AMINOTRANSFERASE 12 U/L (12-78); ALBUMIN 2.2 G/DL (3.4-5.0); ALBUMIN/GLOBULIN RATIO 0.5 (1.1-1.5); ALKALINE PHOSPHATASE 78 IU/L (46-116); ANION GAP 5 (8-16); ASPARTATE AMINO TRANSFERASE 20 U/L (10-37); BILIRUBIN,TOTAL 2.5 MG/DL (0.1-1.0); BLOOD UREA NITROGEN 39 MG/DL (7-18); BUN/CREATININE RATIO 22.3 (5.4-32.0); CHLORIDE 112 MMOL/L (99-107); CREATININE 1.75 MG/DL (0.60-1.10); POTASSIUM 3.3 MMOL/L (3.5-5.1); SODIUM 151 MMOL/L (135-145); TOTAL CARBON DIOXIDE 33.7 MMOL/L (24-32); eGFR 40 ML/MIN
[2018-08-18 01:23] LABS: BACTERIA,URINE FEW /HPF (Neg); RBC,URINE NONE SEEN /HPF (0-2)
[2018-08-18 01:24] LABS: MUCUS STRANDS NONE SEEN /LPF (Neg); SQUAMOUS EPITHELIAL CELL,UR FEW /LPF (FEW); TRANSITIONAL EPI CELLS,URINE FEW /HPF; WBC CLUMPS,URINE FEW /HPF (NEGATIVE)
[2018-08-18 01:25] LABS: CELLULAR CAST 0-4 /LPF (NEGATIVE); FINE GRANULAR CAST 0-3 /LPF (NEGATIVE); HYALINE CASTS 0-3 /LPF (NEGATIVE)
[2018-08-18 01:26] LABS: INR 1.7 INR; PARTIAL THROMBOPLASTIN TIME 41 SECONDS (22-32); PROTHROMBIN TIME 16.7 SECONDS (9.0-12.0)
[2018-08-18 01:27] LABS: YEAST MANY /HPF (NEGATIVE)
[2018-08-18 01:28] LABS: MAGNESIUM 1.4 MG/DL (1.5-2.4); PHOSPHORUS 3.7 MG/DL (2.3-4.5); TROPONIN I < 0.04 NG/ML (0.0-0.05)
[2018-08-18 01:31] LABS: GLUCOSE 133 MG/DL (70-104)
[2018-08-18 01:50] LABS: PLATELET ESTIMATE DECREASED; TOTAL CELLS COUNTED 100
[2018-08-18 01:51] LABS: ANISOCYTOSIS 1+; POLYCHROMASIA 1+
[2018-08-18] MEDS: lactulose 20gm/30ml cup PO SCH ×4 (02:05→20:17)
[2018-08-18] MEDS: mineral oil/petrolatum ophthal oint EACHEYE SCH ×4 (02:06→20:18)
[2018-08-18] MEDS: potassium Cl 40MEQ/250ML bag 250 ML IV PRN (02:06)
[2018-08-18] MEDS: ipratropium/albuterol 3ml nebule NEB SCH ×6 (03:49→23:22)
[2018-08-18] MEDS: midazolam 100mg in NS 100ml 100 ML IV PRN ×3 (03:55→20:49)
[2018-08-18] MEDS: levoFLOXACIN-Levaquin 750MG/D5 150 ML IV SCH (07:17)
[2018-08-18] MEDS: furosemide 10 MG/1 ML 10ml inj IV SCH ×4 (07:18→23:29)
[2018-08-18] MEDS: potassium Cl oral solution 20 MEQ/15 ML PO SCH ×2 (07:18→20:17)
[2018-08-18] MEDS: pantoprazole 40 MG vial IV SCH ×2 (07:18→20:17)
[2018-08-18] MEDS: nystatin 15 GM powder TP SCH ×3 (07:19→20:17)
[2018-08-18] MEDS: FENTANYL-0.9 % NACL/PF 100 ML IV PRN ×3 (12:35→23:29)
[2018-08-18 17:00] LABS: ABG BASE EXCESS 6.5 mmol/L (-2.0-3.0); ABG HCO3 32.7 mmol/L (22.0-26.0); ABG OXYGEN SATURATION 89.7 % (95-98); ABG PCO2 (T) 55.2 mmHg (35.0-48.0); ABG PH (T) 7.391 (7.350-7.450); ABG PO2 (T) 64.6 mmHg (83-108); ALLEN'S TEST Positive; FCOHb 0.2 % (0.5-1.5); FMetHb 0.2 % (0.3-1.12); FO2Hb 89.3 % (94-100); MINUTE VOLUME 9 L/min; PEEP 10 cm H2O; RESPIRATORY RATE 14 b/min; RESPIRATORY RATE (OBSERVED) 16 b/min; TIDAL VOLUME 500 mL; TOTAL HEMOGLOBIN 11.1 G/dl (14.0-18.0)
[2018-08-18 20:43] LABS: ANION GAP 8 (8-16); BLOOD UREA NITROGEN 38 MG/DL (7-18); BUN/CREATININE RATIO 22.1 (5.4-32.0); CALCIUM 7.2 MG/DL (8.5-10.1); CHLORIDE 113 MMOL/L (99-107); CREATININE 1.72 MG/DL (0.60-1.10); PHOSPHORUS 5.4 MG/DL (2.3-4.5); POTASSIUM 3.9 MMOL/L (3.5-5.1); SODIUM 153 MMOL/L (135-145); eGFR 41 ML/MIN
[2018-08-18 21:03] LABS: GLUCOSE 115 MG/DL (70-104)
[2018-08-19] VITALS (23 sets, daily range): BP systolic 84–135; BP diastolic 49–71
[2018-08-19] MEDS: lactulose 20gm/30ml cup PO SCH ×3 (01:45→20:08)
[2018-08-19] MEDS: mineral oil/petrolatum ophthal oint EACHEYE SCH ×4 (01:45→20:09)
[2018-08-19 01:58] LABS: HEMATOCRIT 27.1 % (42.0-52.0); MEAN CORPUSCULAR HGB CONC 33.3 % (33.0-36.5); MEAN CORPUSCULAR VOLUME 90.2 FL (78-98); RED BLOOD COUNT 3.01 X10'6 (4.70-6.10); RED CELL DISTRIBUTION WIDTH 16.6 % (11.5-14.5); WHITE BLOOD COUNT 5.5 X10'3 (4.5-11.0)
[2018-08-19 02:11] LABS: ALANINE AMINOTRANSFERASE 13 U/L (12-78); ALBUMIN/GLOBULIN RATIO 0.5 (1.1-1.5); ALKALINE PHOSPHATASE 76 IU/L (46-116); ANION GAP 4 (8-16); ASPARTATE AMINO TRANSFERASE 23 U/L (10-37); BILIRUBIN,TOTAL 2.3 MG/DL (0.1-1.0); BLOOD UREA NITROGEN 39 MG/DL (7-18); BUN/CREATININE RATIO 21.4 (5.4-32.0); CALCIUM 7.2 MG/DL (8.5-10.1); CHLORIDE 115 MMOL/L (99-107); CREATININE 1.82 MG/DL (0.60-1.10); GLUCOSE 108 MG/DL (70-104); MAGNESIUM 1.3 MG/DL (1.5-2.4); POTASSIUM 4.3 MMOL/L (3.5-5.1); SODIUM 153 MMOL/L (135-145); TOTAL CARBON DIOXIDE 33.7 MMOL/L (24-32); TOTAL PROTEIN 6.4 G/DL (6.4-8.2); eGFR 38 ML/MIN
[2018-08-19 02:25] LABS: PLATELET COUNT 40 X10'3 (140-440)
[2018-08-19 03:00] LABS: ANISOCYTOSIS 1+; PLATELET ESTIMATE DECREASED; TOTAL CELLS COUNTED 100
[2018-08-19] MEDS: ipratropium/albuterol 3ml nebule NEB SCH ×6 (03:05→23:23)
[2018-08-19] MEDS: dexmedetomidin/NS 400mcg/100ml 100 ML IV SCH ×2 (04:07→16:38)
[2018-08-19 04:25] LABS: ABG OXYGEN SATURATION 91.5 % (95-98); ABG PCO2 (T) 65.7 mmHg (35.0-48.0); ABG PH (T) 7.347 (7.350-7.450); ABG PO2 (T) 75.1 mmHg (83-108); ALLEN'S TEST Positive; FCOHb 0.6 % (0.5-1.5); FMetHb 0.2 % (0.3-1.12); FO2Hb 90.8 % (94-100); MINUTE VOLUME 8 L/min; PATIENT TEMPERATURE 37.6; PEEP 10 cm H2O; RESPIRATORY RATE 14 b/min; RESPIRATORY RATE (OBSERVED) 14 b/min; TIDAL VOLUME 500 mL; TOTAL HEMOGLOBIN 9.9 G/dl (14.0-18.0)
[2018-08-19] MEDS: FENTANYL-0.9 % NACL/PF 100 ML IV PRN ×2 (04:57→14:59)
[2018-08-19] MEDS: midazolam 100mg in NS 100ml 100 ML IV PRN ×2 (04:58→17:43)
[2018-08-19] MEDS: methylnaltrexone br 12mg/0.6ml inj***SubQ only SQ SCH (08:00)
[2018-08-19] MEDS: pantoprazole 40 MG vial IV SCH ×2 (08:46→20:08)
[2018-08-19] MEDS: potassium Cl oral solution 20 MEQ/15 ML PO SCH ×2 (08:46→20:08)
[2018-08-19] MEDS: levoFLOXACIN-Levaquin 750MG/D5 150 ML IV SCH (08:46)
[2018-08-19] MEDS: nystatin 15 GM powder TP SCH ×3 (08:47→20:09)
[2018-08-19] MEDS: furosemide 10 MG/1 ML 10ml inj IV SCH (08:52)
[2018-08-19] MEDS: magnesium 2GM in 50ml NS 50 ML IV PRN (15:00)
[2018-08-20] VITALS (23 sets, daily range): BP systolic 96–152; BP diastolic 46–74
[2018-08-20] MEDS: mineral oil/petrolatum ophthal oint EACHEYE SCH ×4 (01:56→20:02)
[2018-08-20 02:08] LABS: BASOPHILS % (AUTO) 0.1 % (0-1); EOSINOPHILS # (AUTO) 0.1 X10'3 (0-0.9); EOSINOPHILS % (AUTO) 2.7 % (0-6); HEMATOCRIT 26.1 % (42.0-52.0); HEMOGLOBIN 8.3 g/dl (14.0-17.9); LYMPHOCYTES # (AUTO) 0.6 X10'3 (1.1-4.8); LYMPHOCYTES % (AUTO) 13.1 % (21-51); MEAN CORPUSCULAR HEMOGLOBIN 29.3 PG (27.0-31.0); MEAN CORPUSCULAR HGB CONC 31.9 % (33.0-36.5); MEAN CORPUSCULAR VOLUME 92.1 FL (78-98); MEAN PLATELET VOLUME 9.3 FL (7.4-10.4); MONOCYTES # (AUTO) 0.9 X10'3 (0-0.9); MONOCYTES % (AUTO) 18.6 % (2-12); NEUTROPHILS % (AUTO) 65.5 % (42-75); RED BLOOD COUNT 2.83 X10'6 (4.70-6.10); RED CELL DISTRIBUTION WIDTH 18.1 % (11.5-14.5); WHITE BLOOD COUNT 4.7 X10'3 (4.5-11.0)
[2018-08-20] MEDS: FENTANYL-0.9 % NACL/PF 100 ML IV PRN (02:23)
[2018-08-20 02:25] LABS: ALANINE AMINOTRANSFERASE 13 U/L (12-78); ALBUMIN/GLOBULIN RATIO 0.5 (1.1-1.5); ALKALINE PHOSPHATASE 79 IU/L (46-116); ANION GAP 3 (8-16); ASPARTATE AMINO TRANSFERASE 26 U/L (10-37); BILIRUBIN,TOTAL 2.2 MG/DL (0.1-1.0); BLOOD UREA NITROGEN 44 MG/DL (7-18); BUN/CREATININE RATIO 24.7 (5.4-32.0); CALCIUM 7.3 MG/DL (8.5-10.1); CHLORIDE 115 MMOL/L (99-107); CREATININE 1.78 MG/DL (0.60-1.10); MAGNESIUM 1.9 MG/DL (1.5-2.4); POTASSIUM 4.7 MMOL/L (3.5-5.1); SODIUM 153 MMOL/L (135-145); TOTAL CARBON DIOXIDE 34.8 MMOL/L (24-32); TOTAL PROTEIN 6.4 G/DL (6.4-8.2); eGFR 39 ML/MIN
[2018-08-20 02:31] LABS: PLATELET COUNT 28 X10'3 (140-440)
[2018-08-20 02:32] LABS: GLUCOSE 122 MG/DL (70-104); PLATELET ESTIMATE DECREASED
[2018-08-20 02:33] LABS: ANISOCYTOSIS 2+; POLYCHROMASIA FEW
[2018-08-20] MEDS: ipratropium/albuterol 3ml nebule NEB SCH ×6 (03:24→23:50)
[2018-08-20 03:36] LABS: ABG HCO3 35.6 mmol/L (22.0-26.0); ABG OXYGEN SATURATION 94.2 % (95-98); ABG PCO2 (T) 59.8 mmHg (35.0-48.0); ABG PO2 (T) 76.9 mmHg (83-108); ALLEN'S TEST Positive; FCOHb 0.6 % (0.5-1.5); FMetHb 0.2 % (0.3-1.12); FO2Hb 93.4 % (94-100); PATIENT TEMPERATURE 36.5; PEEP 10 cm H2O; RESPIRATORY RATE 16 b/min; RESPIRATORY RATE (OBSERVED) 16 b/min; TIDAL VOLUME 500 mL; TOTAL HEMOGLOBIN 9.7 G/dl (14.0-18.0)
[2018-08-20] MEDS: dexmedetomidin/NS 400mcg/100ml 100 ML IV SCH (05:09)
[2018-08-20] MEDS: midazolam 100mg in NS 100ml 100 ML IV PRN (05:15)
[2018-08-20] MEDS: pantoprazole 40 MG vial IV SCH ×2 (08:51→20:02)
[2018-08-20] MEDS: potassium Cl oral solution 20 MEQ/15 ML PO SCH ×2 (08:51→20:00)
[2018-08-20] MEDS: lactulose 20gm/30ml cup PO SCH ×2 (08:52→20:02)
[2018-08-20] MEDS: levoFLOXACIN-Levaquin 750MG/D5 150 ML IV SCH (08:52)
[2018-08-20] MEDS: nystatin 15 GM powder TP SCH ×3 (08:56→20:02)
[2018-08-20] MEDS: furosemide 10 MG/1 ML 10ml inj IV SCH (08:56)
[2018-08-21] VITALS (20 sets, daily range): BP systolic 91–137; BP diastolic 47–80
[2018-08-21 02:40] LABS: BASOPHILS % (AUTO) 0.4 % (0-1); EOSINOPHILS % (AUTO) 0 % (0-6); HEMATOCRIT 24.8 % (42.0-52.0); HEMOGLOBIN 7.9 g/dl (14.0-17.9); LYMPHOCYTES # (AUTO) 0.3 X10'3 (1.1-4.8); LYMPHOCYTES % (AUTO) 8.2 % (21-51); MEAN CORPUSCULAR HEMOGLOBIN 29.4 PG (27.0-31.0); MEAN CORPUSCULAR HGB CONC 31.9 % (33.0-36.5); MEAN CORPUSCULAR VOLUME 92.3 FL (78-98); MONOCYTES # (AUTO) 0.6 X10'3 (0-0.9); MONOCYTES % (AUTO) 17.2 % (2-12); NEUTROPHILS # (AUTO) 2.7 X10'3 (1.8-7.7); NEUTROPHILS % (AUTO) 74.2 % (42-75); RED BLOOD COUNT 2.69 X10'6 (4.70-6.10); RED CELL DISTRIBUTION WIDTH 19.1 % (11.5-14.5); WHITE BLOOD COUNT 3.6 X10'3 (4.5-11.0)
[2018-08-21 02:47] LABS: ALANINE AMINOTRANSFERASE 14 U/L (12-78); ALBUMIN/GLOBULIN RATIO 0.5 (1.1-1.5); ALKALINE PHOSPHATASE 83 IU/L (46-116); ANION GAP 2 (8-16); ASPARTATE AMINO TRANSFERASE 28 U/L (10-37); BILIRUBIN,TOTAL 1.8 MG/DL (0.1-1.0); BLOOD UREA NITROGEN 44 MG/DL (7-18); BUN/CREATININE RATIO 27.2 (5.4-32.0); CALCIUM 7.4 MG/DL (8.5-10.1); CHLORIDE 116 MMOL/L (99-107); CREATININE 1.62 MG/DL (0.60-1.10); GLUCOSE 102 MG/DL (70-104); MAGNESIUM 1.8 MG/DL (1.5-2.4); POTASSIUM 3.9 MMOL/L (3.5-5.1); SODIUM 153 MMOL/L (135-145); TOTAL CARBON DIOXIDE 34.7 MMOL/L (24-32); TOTAL PROTEIN 6.4 G/DL (6.4-8.2); eGFR 44 ML/MIN
[2018-08-21] MEDS: mineral oil/petrolatum ophthal oint EACHEYE SCH ×4 (02:55→20:25)
[2018-08-21 03:14] LABS: PLATELET COUNT 32 X10'3 (140-440)
[2018-08-21 03:30] LABS: ABG BASE EXCESS 10.1 mmol/L (-2.0-3.0); ABG HCO3 35.8 mmol/L (22.0-26.0); ABG PH (T) 7.437 (7.350-7.450); ABG PO2 (T) 69.6 mmHg (83-108); ALLEN'S TEST Positive; FCOHb 0.5 % (0.5-1.5); FMetHb 0.1 % (0.3-1.12); FO2Hb 92.4 % (94-100); PATIENT TEMPERATURE 36.5; PEEP 8 cm H2O; RESPIRATORY RATE 16 b/min; RESPIRATORY RATE (OBSERVED) 16 b/min; TIDAL VOLUME 500 mL; TOTAL HEMOGLOBIN 9.3 G/dl (14.0-18.0)
[2018-08-21] MEDS: ipratropium/albuterol 3ml nebule NEB SCH ×6 (03:30→23:40)
[2018-08-21] MEDS: pantoprazole 40 MG vial IV SCH ×2 (07:51→20:25)
[2018-08-21] MEDS: levoFLOXACIN-Levaquin 750MG/D5 150 ML IV SCH (07:51)
[2018-08-21] MEDS: furosemide 10 MG/1 ML 10ml inj IV SCH (07:51)
[2018-08-21] MEDS: lactulose 20gm/30ml cup PO SCH ×2 (07:51→20:25)
[2018-08-21] MEDS: potassium Cl oral solution 20 MEQ/15 ML PO SCH ×2 (07:52→20:27)
[2018-08-21] MEDS: methylnaltrexone br 12mg/0.6ml inj***SubQ only SQ SCH (07:53)
[2018-08-21] MEDS: nystatin 15 GM powder TP SCH ×3 (07:54→20:25)
[2018-08-21] MEDS: FENTANYL-0.9 % NACL/PF 100 ML IV PRN ×2 (09:17→20:26)
[2018-08-21] MEDS: midazolam 100mg in NS 100ml 100 ML IV PRN ×2 (09:18→18:45)
[2018-08-21 09:31] LABS: OXYGEN SATURATION (MIXED VEN) 78.6 % (60-80); PO2 MIXED VENOUS (TEMP COR) 43.8 mmHg (35-46)
[2018-08-22] VITALS (24 sets, daily range): BP systolic 82–127; BP diastolic 54–78
[2018-08-22] MEDS: mineral oil/petrolatum ophthal oint EACHEYE SCH ×4 (02:00→20:37)
[2018-08-22 03:16] LABS: ABG BASE EXCESS 11.3 mmol/L (-2.0-3.0); ABG HCO3 37.6 mmol/L (22.0-26.0); ABG OXYGEN SATURATION 96.8 % (95-98); ABG PCO2 (T) 57.7 mmHg (35.0-48.0); ABG PH (T) 7.428 (7.350-7.450); ABG PO2 (T) 92.1 mmHg (83-108); ALLEN'S TEST Positive; FCOHb 0.3 % (0.5-1.5); FMetHb 0.3 % (0.3-1.12); FO2Hb 96.2 % (94-100); PEEP 5 cm H2O; RESPIRATORY RATE 12 b/min; RESPIRATORY RATE (OBSERVED) 12 b/min; TIDAL VOLUME 650 mL; TOTAL HEMOGLOBIN 9.7 G/dl (14.0-18.0)
[2018-08-22] MEDS: ipratropium/albuterol 3ml nebule NEB SCH ×6 (03:47→23:26)
[2018-08-22 04:02] LABS: ALANINE AMINOTRANSFERASE 14 U/L (12-78); ALBUMIN 2.1 G/DL (3.4-5.0); ALBUMIN/GLOBULIN RATIO 0.5 (1.1-1.5); ALKALINE PHOSPHATASE 89 IU/L (46-116); ANION GAP 2 (8-16); ASPARTATE AMINO TRANSFERASE 32 U/L (10-37); BILIRUBIN,TOTAL 1.7 MG/DL (0.1-1.0); BLOOD UREA NITROGEN 40 MG/DL (7-18); BUN/CREATININE RATIO 27.6 (5.4-32.0); CALCIUM 7.8 MG/DL (8.5-10.1); CHLORIDE 115 MMOL/L (99-107); CREATININE 1.45 MG/DL (0.60-1.10); MAGNESIUM 1.9 MG/DL (1.5-2.4); SODIUM 154 MMOL/L (135-145); TOTAL CARBON DIOXIDE 36.6 MMOL/L (24-32); TOTAL PROTEIN 6.7 G/DL (6.4-8.2); eGFR 50 ML/MIN
[2018-08-22 04:17] LABS: GLUCOSE 101 MG/DL (70-104)
[2018-08-22 04:48] LABS: BASOPHILS % (AUTO) 0.4 % (0-1); EOSINOPHILS # (AUTO) 0.1 X10'3 (0-0.9); EOSINOPHILS % (AUTO) 2.1 % (0-6); HEMATOCRIT 25.3 % (42.0-52.0); HEMOGLOBIN 8.3 g/dl (14.0-17.9); LYMPHOCYTES # (AUTO) 0.6 X10'3 (1.1-4.8); LYMPHOCYTES % (AUTO) 19.8 % (21-51); MEAN CORPUSCULAR HEMOGLOBIN 29.9 PG (27.0-31.0); MEAN CORPUSCULAR HGB CONC 32.7 % (33.0-36.5); MEAN CORPUSCULAR VOLUME 91.5 FL (78-98); MEAN PLATELET VOLUME 8.9 FL (7.4-10.4); MONOCYTES # (AUTO) 0.4 X10'3 (0-0.9); MONOCYTES % (AUTO) 12.3 % (2-12); NEUTROPHILS # (AUTO) 1.9 X10'3 (1.8-7.7); NEUTROPHILS % (AUTO) 65.4 % (42-75); RED BLOOD COUNT 2.77 X10'6 (4.70-6.10); RED CELL DISTRIBUTION WIDTH 18.8 % (11.5-14.5)
[2018-08-22 04:52] LABS: PLATELET COUNT 36 X10'3 (140-440)
[2018-08-22] MEDS: midazolam 100mg in NS 100ml 100 ML IV PRN (06:10)
[2018-08-22 07:08] LABS: TOTAL CELLS COUNTED 100
[2018-08-22 07:09] LABS: ANISOCYTOSIS 2+; ELLIPTOCYTES FEW; HYPOCHROMASIA 1+; PLATELET ESTIMATE DECREASED; POLYCHROMASIA 1+
[2018-08-22] MEDS: lactulose 20gm/30ml cup PO SCH (08:00)
[2018-08-22] MEDS: furosemide 10 MG/1 ML 10ml inj IV SCH (08:00)
[2018-08-22] MEDS: pantoprazole 40 MG vial IV SCH ×2 (08:00→20:36)
[2018-08-22] MEDS: potassium Cl oral solution 20 MEQ/15 ML PO SCH ×2 (08:00→20:36)
[2018-08-22] MEDS: levoFLOXACIN-Levaquin 750MG/D5 150 ML IV SCH (08:01)
[2018-08-22] MEDS: nystatin 15 GM powder TP SCH ×3 (08:01→20:36)
[2018-08-22] MEDS ORDERED: epoetin 20,000 units/ml inj SQ ONE (10:45)
[2018-08-22] MEDS ORDERED: metoclopramide 5 mg/ml inj IV PRN (10:45)
[2018-08-22] MEDS: propofol 1000mg/100ml bottle 100 ML IV PRN ×2 (11:09→16:11)
[2018-08-22 15:39] LABS: HEMATOCRIT 28.8 % (42.0-52.0); HEMOGLOBIN 9.1 g/dl (14.0-17.9); MEAN CORPUSCULAR HEMOGLOBIN 29.4 PG (27.0-31.0); MEAN CORPUSCULAR HGB CONC 31.6 % (33.0-36.5); MEAN CORPUSCULAR VOLUME 92.9 FL (78-98); MEAN PLATELET VOLUME 8.3 FL (7.4-10.4); RED BLOOD COUNT 3.11 X10'6 (4.70-6.10); RED CELL DISTRIBUTION WIDTH 21.2 % (11.5-14.5); WHITE BLOOD COUNT 2.9 X10'3 (4.5-11.0)
[2018-08-22 15:52] LABS: PLATELET COUNT 36 X10'3 (140-440)
[2018-08-22] MEDS: FENTANYL-0.9 % NACL/PF 100 ML IV PRN (21:29)
[2018-08-23] VITALS (23 sets, daily range): BP systolic 84–125; BP diastolic 43–77
[2018-08-23] MEDS: mineral oil/petrolatum ophthal oint EACHEYE SCH ×4 (01:54→19:35)
[2018-08-23] MEDS: ipratropium/albuterol 3ml nebule NEB SCH ×6 (03:35→23:16)
[2018-08-23 03:36] LABS: ABG BASE EXCESS 10.4 mmol/L (-2.0-3.0); ABG HCO3 36.4 mmol/L (22.0-26.0); ABG OXYGEN SATURATION 94.7 % (95-98); ABG PCO2 (T) 56.2 mmHg (35.0-48.0); ABG PH (T) 7.427 (7.350-7.450); ABG PO2 (T) 78.4 mmHg (83-108); ALLEN'S TEST Positive; FCOHb 0.3 % (0.5-1.5); FMetHb 0.1 % (0.3-1.12); FO2Hb 94.3 % (94-100); PATIENT TEMPERATURE 36.6; PEEP 5 cm H2O; RESPIRATORY RATE 12 b/min; RESPIRATORY RATE (OBSERVED) 12 b/min; TIDAL VOLUME 650 mL; TOTAL HEMOGLOBIN 9.4 G/dl (14.0-18.0)
[2018-08-23 03:49] LABS: ALANINE AMINOTRANSFERASE 21 U/L (12-78); ALBUMIN/GLOBULIN RATIO 0.4 (1.1-1.5); ALKALINE PHOSPHATASE 91 IU/L (46-116); ANION GAP 0 (8-16); ASPARTATE AMINO TRANSFERASE 41 U/L (10-37); BILIRUBIN,TOTAL 1.4 MG/DL (0.1-1.0); BLOOD UREA NITROGEN 36 MG/DL (7-18); BUN/CREATININE RATIO 30.5 (5.4-32.0); CALCIUM 7.8 MG/DL (8.5-10.1); CHLORIDE 115 MMOL/L (99-107); CREATININE 1.18 MG/DL (0.60-1.10); MAGNESIUM 1.9 MG/DL (1.5-2.4); POTASSIUM 4.1 MMOL/L (3.5-5.1); SODIUM 152 MMOL/L (135-145); TOTAL CARBON DIOXIDE 37.3 MMOL/L (24-32); TOTAL PROTEIN 6.6 G/DL (6.4-8.2); TRIGLYCERIDES 40 MG/DL (20-135); eGFR 63 ML/MIN
[2018-08-23 04:00] LABS: GLUCOSE 103 MG/DL (70-104)
[2018-08-23 04:17] LABS: BASOPHILS % (AUTO) 0.9 % (0-1); EOSINOPHILS # (AUTO) 0.1 X10'3 (0-0.9); HEMATOCRIT 26.3 % (42.0-52.0); HEMOGLOBIN 8.4 g/dl (14.0-17.9); LYMPHOCYTES # (AUTO) 0.3 X10'3 (1.1-4.8); LYMPHOCYTES % (AUTO) 10.4 % (21-51); MEAN CORPUSCULAR HEMOGLOBIN 29.9 PG (27.0-31.0); MEAN CORPUSCULAR HGB CONC 32.1 % (33.0-36.5); MEAN PLATELET VOLUME 8.9 FL (7.4-10.4); MONOCYTES # (AUTO) 0.4 X10'3 (0-0.9); MONOCYTES % (AUTO) 12.1 % (2-12); NEUTROPHILS # (AUTO) 2.2 X10'3 (1.8-7.7); NEUTROPHILS % (AUTO) 72.6 % (42-75); RED BLOOD COUNT 2.82 X10'6 (4.70-6.10); WHITE BLOOD COUNT 3.1 X10'3 (4.5-11.0)
[2018-08-23 04:20] LABS: PLATELET COUNT 34 X10'3 (140-440)
[2018-08-23] MEDS: propofol 1000mg/100ml bottle 100 ML IV PRN ×3 (05:24→18:33)
[2018-08-23 06:09] LABS: PLATELET ESTIMATE DECREASED
[2018-08-23 06:10] LABS: ANISOCYTOSIS 2+
[2018-08-23 06:12] LABS: POIKILOCYTOSIS FEW; POLYCHROMASIA FEW
[2018-08-23] MEDS: methylnaltrexone br 12mg/0.6ml inj***SubQ only SQ SCH (07:52)
[2018-08-23] MEDS: potassium Cl oral solution 20 MEQ/15 ML PO SCH ×2 (07:58→19:34)
[2018-08-23] MEDS: levoFLOXACIN-Levaquin 750MG/D5 150 ML IV SCH (07:58)
[2018-08-23] MEDS: nystatin 15 GM powder TP SCH ×3 (07:58→20:10)
[2018-08-23] MEDS: furosemide 10 MG/1 ML 10ml inj IV SCH (07:58)
[2018-08-23] MEDS: pantoprazole 40 MG vial IV SCH ×2 (07:58→19:35)
[2018-08-23] MEDS: midazolam 100mg in NS 100ml 100 ML IV PRN (11:19)
[2018-08-23] MEDS: FENTANYL-0.9 % NACL/PF 100 ML IV PRN (19:35)
[2018-08-24] VITALS (24 sets, daily range): BP systolic 82–135; BP diastolic 36–74
[2018-08-24] MEDS: mineral oil/petrolatum ophthal oint EACHEYE SCH ×4 (02:21→20:10)
[2018-08-24] MEDS: propofol 1000mg/100ml bottle 100 ML IV PRN ×2 (02:46→21:47)
[2018-08-24 03:10] LABS: ABG HCO3 33.9 mmol/L (22.0-26.0); ABG OXYGEN SATURATION 94.5 % (95-98); ABG PH (T) 7.407 (7.350-7.450); ABG PO2 (T) 78.6 mmHg (83-108); ALLEN'S TEST Positive; FCOHb 0.2 % (0.5-1.5); FMetHb 0.2 % (0.3-1.12); FO2Hb 94.1 % (94-100); PATIENT TEMPERATURE 36.9; PEEP 10 cm H2O; RESPIRATORY RATE 12 b/min; RESPIRATORY RATE (OBSERVED) 12 b/min; TIDAL VOLUME 650 mL; TOTAL HEMOGLOBIN 9.8 G/dl (14.0-18.0)
[2018-08-24] MEDS: ipratropium/albuterol 3ml nebule NEB SCH ×6 (03:11→23:31)
[2018-08-24 03:45] LABS: BASOPHILS % (AUTO) 0.2 % (0-1); EOSINOPHILS # (AUTO) 0.1 X10'3 (0-0.9); EOSINOPHILS % (AUTO) 2.8 % (0-6); HEMATOCRIT 27.8 % (42.0-52.0); HEMOGLOBIN 8.9 g/dl (14.0-17.9); LYMPHOCYTES # (AUTO) 0.5 X10'3 (1.1-4.8); LYMPHOCYTES % (AUTO) 12.7 % (21-51); MEAN CORPUSCULAR HEMOGLOBIN 29.9 PG (27.0-31.0); MEAN CORPUSCULAR HGB CONC 31.9 % (33.0-36.5); MEAN CORPUSCULAR VOLUME 93.6 FL (78-98); MEAN PLATELET VOLUME 9.4 FL (7.4-10.4); MONOCYTES # (AUTO) 0.5 X10'3 (0-0.9); MONOCYTES % (AUTO) 13.5 % (2-12); NEUTROPHILS # (AUTO) 2.5 X10'3 (1.8-7.7); NEUTROPHILS % (AUTO) 70.8 % (42-75); RED BLOOD COUNT 2.96 X10'6 (4.70-6.10); RED CELL DISTRIBUTION WIDTH 19.7 % (11.5-14.5); WHITE BLOOD COUNT 3.6 X10'3 (4.5-11.0)
[2018-08-24 03:53] LABS: ALANINE AMINOTRANSFERASE 20 U/L (12-78); ALBUMIN/GLOBULIN RATIO 0.4 (1.1-1.5); ALKALINE PHOSPHATASE 108 IU/L (46-116); ANION GAP 6 (8-16); ASPARTATE AMINO TRANSFERASE 46 U/L (10-37); BILIRUBIN,TOTAL 1.5 MG/DL (0.1-1.0); BLOOD UREA NITROGEN 38 MG/DL (7-18); BUN/CREATININE RATIO 30.2 (5.4-32.0); CALCIUM 7.7 MG/DL (8.5-10.1); CHLORIDE 114 MMOL/L (99-107); CREATININE 1.26 MG/DL (0.60-1.10); GLUCOSE 113 MG/DL (70-104); MAGNESIUM 1.9 MG/DL (1.5-2.4); POTASSIUM 4.1 MMOL/L (3.5-5.1); SODIUM 154 MMOL/L (135-145); TOTAL CARBON DIOXIDE 33.7 MMOL/L (24-32); TOTAL PROTEIN 6.8 G/DL (6.4-8.2); eGFR 59 ML/MIN
[2018-08-24 04:01] LABS: PLATELET COUNT 40 X10'3 (140-440)
[2018-08-24] MEDS: nystatin 15 GM powder TP SCH ×3 (07:59→20:10)
[2018-08-24] MEDS: furosemide 10 MG/1 ML 10ml inj IV SCH (08:00)
[2018-08-24] MEDS: potassium Cl oral solution 20 MEQ/15 ML PO SCH ×2 (08:00→20:10)
[2018-08-24] MEDS: pantoprazole 40 MG vial IV SCH ×2 (08:00→20:10)
[2018-08-24] MEDS: levoFLOXACIN-Levaquin 750MG/D5 150 ML IV SCH (08:00)
[2018-08-24] MEDS: FENTANYL-0.9 % NACL/PF 100 ML IV PRN (17:51)
[2018-08-25] VITALS (23 sets, daily range): BP systolic 91–131; BP diastolic 42–68
[2018-08-25] MEDS: mineral oil/petrolatum ophthal oint EACHEYE SCH ×4 (02:06→20:13)
[2018-08-25] MEDS: ipratropium/albuterol 3ml nebule NEB SCH ×6 (03:43→23:37)
[2018-08-25 03:45] LABS: ABG BASE EXCESS 8.2 mmol/L (-2.0-3.0); ABG HCO3 32.9 mmol/L (22.0-26.0); ABG OXYGEN SATURATION 91.7 % (95-98); ABG PCO2 (T) 48.4 mmHg (35.0-48.0); ABG PH (T) 7.453 (7.350-7.450); ALLEN'S TEST Positive; FCOHb 0.4 % (0.5-1.5); FO2Hb 91.3 % (94-100); PATIENT TEMPERATURE 37.7; PEEP 10 cm H2O; RESPIRATORY RATE 12 b/min; RESPIRATORY RATE (OBSERVED) 14 b/min; TIDAL VOLUME 650 mL; TOTAL HEMOGLOBIN 9.4 G/dl (14.0-18.0)
[2018-08-25 04:25] LABS: ALANINE AMINOTRANSFERASE 16 U/L (12-78); ALBUMIN 1.8 G/DL (3.4-5.0); ALBUMIN/GLOBULIN RATIO 0.4 (1.1-1.5); ALKALINE PHOSPHATASE 96 IU/L (46-116); ANION GAP 4 (8-16); ASPARTATE AMINO TRANSFERASE 37 U/L (10-37); BILIRUBIN,TOTAL 1.3 MG/DL (0.1-1.0); BLOOD UREA NITROGEN 51 MG/DL (7-18); BUN/CREATININE RATIO 35.7 (5.4-32.0); CALCIUM 7.5 MG/DL (8.5-10.1); CHLORIDE 114 MMOL/L (99-107); CREATININE 1.43 MG/DL (0.60-1.10); SODIUM 152 MMOL/L (135-145); TOTAL CARBON DIOXIDE 34.4 MMOL/L (24-32); TOTAL PROTEIN 6.2 G/DL (6.4-8.2); eGFR 51 ML/MIN
[2018-08-25 04:26] LABS: GLUCOSE 97 MG/DL (70-104)
[2018-08-25 04:56] LABS: HEMATOCRIT 24.6 % (42.0-52.0); HEMOGLOBIN 8.3 g/dl (14.0-17.9); MEAN CORPUSCULAR HEMOGLOBIN 31.6 PG (27.0-31.0); MEAN CORPUSCULAR HGB CONC 33.8 % (33.0-36.5); MEAN CORPUSCULAR VOLUME 93.4 FL (78-98); RED BLOOD COUNT 2.64 X10'6 (4.70-6.10); RED CELL DISTRIBUTION WIDTH 21.8 % (11.5-14.5); WHITE BLOOD COUNT 4.2 X10'3 (4.5-11.0)
[2018-08-25 04:57] LABS: BASOPHILS % (AUTO) 0.5 % (0-1); EOSINOPHILS # (AUTO) 0.1 X10'3 (0-0.9); EOSINOPHILS % (AUTO) 2.9 % (0-6); LYMPHOCYTES # (AUTO) 0.5 X10'3 (1.1-4.8); MONOCYTES # (AUTO) 0.4 X10'3 (0-0.9); MONOCYTES % (AUTO) 10.7 % (2-12); NEUTROPHILS # (AUTO) 3.2 X10'3 (1.8-7.7); NEUTROPHILS % (AUTO) 73.9 % (42-75)
[2018-08-25 04:59] LABS: PLATELET COUNT 32 X10'3 (140-440)
[2018-08-25] MEDS: propofol 1000mg/100ml bottle 100 ML IV PRN ×2 (05:38→19:40)
[2018-08-25] MEDS: midazolam 100mg in NS 100ml 100 ML IV PRN (05:40)
[2018-08-25] MEDS: methylnaltrexone br 12mg/0.6ml inj***SubQ only SQ SCH (07:10)
[2018-08-25] MEDS: furosemide 10 MG/1 ML 10ml inj IV SCH (08:00)
[2018-08-25] MEDS: levoFLOXACIN-Levaquin 750MG/D5 150 ML IV SCH (08:08)
[2018-08-25] MEDS: pantoprazole 40 MG vial IV SCH ×2 (08:09→20:13)
[2018-08-25] MEDS: nystatin 15 GM powder TP SCH ×3 (08:09→20:13)
[2018-08-25] MEDS: potassium Cl oral solution 20 MEQ/15 ML PO SCH (08:14)
[2018-08-25] MEDS: FENTANYL-0.9 % NACL/PF 100 ML IV PRN (15:02)
[2018-08-25] MEDS ORDERED: diatr meglu/diatrizoate 30ml oral sol.-(3 dose) bottle NG ONE (22:00)
[2018-08-26] VITALS (24 sets, daily range): BP systolic 81–129; BP diastolic 40–71
[2018-08-26] MEDS: mineral oil/petrolatum ophthal oint EACHEYE SCH ×4 (02:00→20:22)
[2018-08-26 03:16] LABS: ABG BASE EXCESS 7.1 mmol/L (-2.0-3.0); ABG HCO3 30.7 mmol/L (22.0-26.0); ABG PCO2 (T) 38.6 mmHg (35.0-48.0); ABG PH (T) 7.516 (7.350-7.450); ABG PO2 (T) 60.2 mmHg (83-108); ALLEN'S TEST Positive; FCOHb 0.2 % (0.5-1.5); FMetHb 0.1 % (0.3-1.12); FO2Hb 90.7 % (94-100); PATIENT TEMPERATURE 36.5; PEEP 10 cm H2O; RESPIRATORY RATE 12 b/min; RESPIRATORY RATE (OBSERVED) 14 b/min; TIDAL VOLUME 650 mL; TOTAL HEMOGLOBIN 9.2 G/dl (14.0-18.0)
[2018-08-26] MEDS: ipratropium/albuterol 3ml nebule NEB SCH ×6 (03:16→23:11)
[2018-08-26 03:30] LABS: ALANINE AMINOTRANSFERASE 16 U/L (12-78); ALBUMIN 1.9 G/DL (3.4-5.0); ALBUMIN/GLOBULIN RATIO 0.4 (1.1-1.5); ALKALINE PHOSPHATASE 104 IU/L (46-116); ANION GAP 7 (8-16); ASPARTATE AMINO TRANSFERASE 38 U/L (10-37); BILIRUBIN,TOTAL 1.7 MG/DL (0.1-1.0); BLOOD UREA NITROGEN 64 MG/DL (7-18); BUN/CREATININE RATIO 40.8 (5.4-32.0); CALCIUM 7.6 MG/DL (8.5-10.1); CHLORIDE 113 MMOL/L (99-107); CREATININE 1.57 MG/DL (0.60-1.10); MAGNESIUM 2.3 MG/DL (1.5-2.4); POTASSIUM 3.9 MMOL/L (3.5-5.1); SODIUM 151 MMOL/L (135-145); TOTAL CARBON DIOXIDE 31.3 MMOL/L (24-32); TOTAL PROTEIN 6.3 G/DL (6.4-8.2); eGFR 45 ML/MIN
[2018-08-26 03:31] LABS: GLUCOSE 84 MG/DL (70-104)
[2018-08-26 03:42] LABS: BASOPHILS % (AUTO) 0.1 % (0-1); EOSINOPHILS # (AUTO) 0.1 X10'3 (0-0.9); EOSINOPHILS % (AUTO) 2.9 % (0-6); HEMATOCRIT 25.7 % (42.0-52.0); HEMOGLOBIN 8.4 g/dl (14.0-17.9); LYMPHOCYTES # (AUTO) 0.5 X10'3 (1.1-4.8); LYMPHOCYTES % (AUTO) 15.2 % (21-51); MEAN CORPUSCULAR HEMOGLOBIN 30.6 PG (27.0-31.0); MEAN CORPUSCULAR HGB CONC 32.6 % (33.0-36.5); MEAN CORPUSCULAR VOLUME 93.8 FL (78-98); MEAN PLATELET VOLUME 10.3 FL (7.4-10.4); MONOCYTES # (AUTO) 0.4 X10'3 (0-0.9); MONOCYTES % (AUTO) 10.7 % (2-12); NEUTROPHILS # (AUTO) 2.5 X10'3 (1.8-7.7); NEUTROPHILS % (AUTO) 71.1 % (42-75); RED BLOOD COUNT 2.74 X10'6 (4.70-6.10); RED CELL DISTRIBUTION WIDTH 21.3 % (11.5-14.5); WHITE BLOOD COUNT 3.5 X10'3 (4.5-11.0)
[2018-08-26 04:12] LABS: PLATELET COUNT 39 X10'3 (140-440)
[2018-08-26] MEDS: pantoprazole 40 MG vial IV SCH ×2 (07:45→20:15)
[2018-08-26] MEDS: levoFLOXACIN-Levaquin 750MG/D5 150 ML IV SCH (07:45)
[2018-08-26] MEDS: nystatin 15 GM powder TP SCH ×3 (07:46→20:22)
[2018-08-26] MEDS: propofol 1000mg/100ml bottle 100 ML IV PRN (12:30)
[2018-08-26] MEDS ORDERED: diatr meglu/diatrizoate 30ml oral sol.-(3 dose) bottle PO ONE (16:50)
[2018-08-26] MEDS: midazolam 100mg in NS 100ml 100 ML IV PRN (20:18)
[2018-08-26] MEDS ORDERED: diatrozoate meglu/diatrozoate sod (37% iodine) 120ML oral solution PO ONE (22:00)
[2018-08-26 23:10] LABS: HEMATOCRIT 24.7 % (42.0-52.0); MEAN CORPUSCULAR HEMOGLOBIN 30.6 PG (27.0-31.0); MEAN CORPUSCULAR HGB CONC 32.3 % (33.0-36.5); MEAN CORPUSCULAR VOLUME 94.7 FL (78-98); MEAN PLATELET VOLUME 9.7 FL (7.4-10.4); RED BLOOD COUNT 2.61 X10'6 (4.70-6.10); RED CELL DISTRIBUTION WIDTH 22.9 % (11.5-14.5); WHITE BLOOD COUNT 2.9 X10'3 (4.5-11.0)
[2018-08-26 23:33] LABS: PLATELET COUNT 32 X10'3 (140-440)
[2018-08-26 23:42] LABS: ANISOCYTOSIS 3+; PLATELET ESTIMATE DECREASED; TOTAL CELLS COUNTED 100
[2018-08-26 23:44] LABS: POLYCHROMASIA FEW
[2018-08-27] VITALS (27 sets, daily range): BP systolic 83–113; BP diastolic 7–74
[2018-08-27] MEDS: mineral oil/petrolatum ophthal oint EACHEYE SCH ×4 (02:49→20:33)
[2018-08-27 03:12] LABS: BASOPHILS % (AUTO) 0.2 % (0-1); EOSINOPHILS # (AUTO) 0.1 X10'3 (0-0.9); EOSINOPHILS % (AUTO) 2.4 % (0-6); HEMATOCRIT 26.1 % (42.0-52.0); HEMOGLOBIN 8.6 g/dl (14.0-17.9); LYMPHOCYTES # (AUTO) 0.3 X10'3 (1.1-4.8); LYMPHOCYTES % (AUTO) 10.9 % (21-51); MEAN CORPUSCULAR HEMOGLOBIN 31.5 PG (27.0-31.0); MEAN CORPUSCULAR VOLUME 95.5 FL (78-98); MEAN PLATELET VOLUME 9.3 FL (7.4-10.4); MONOCYTES # (AUTO) 0.4 X10'3 (0-0.9); MONOCYTES % (AUTO) 13.3 % (2-12); NEUTROPHILS # (AUTO) 2.2 X10'3 (1.8-7.7); NEUTROPHILS % (AUTO) 73.2 % (42-75); RED BLOOD COUNT 2.73 X10'6 (4.70-6.10); RED CELL DISTRIBUTION WIDTH 23.2 % (11.5-14.5); WHITE BLOOD COUNT 3.1 X10'3 (4.5-11.0)
[2018-08-27 03:19] LABS: ALANINE AMINOTRANSFERASE 19 U/L (12-78); ALBUMIN/GLOBULIN RATIO 0.4 (1.1-1.5); ALKALINE PHOSPHATASE 104 IU/L (46-116); ANION GAP 6 (8-16); ASPARTATE AMINO TRANSFERASE 40 U/L (10-37); BILIRUBIN,TOTAL 1.7 MG/DL (0.1-1.0); BLOOD UREA NITROGEN 62 MG/DL (7-18); BUN/CREATININE RATIO 42.5 (5.4-32.0); CALCIUM 7.8 MG/DL (8.5-10.1); CHLORIDE 115 MMOL/L (99-107); CREATININE 1.46 MG/DL (0.60-1.10); MAGNESIUM 2.5 MG/DL (1.5-2.4); POTASSIUM 3.4 MMOL/L (3.5-5.1); SODIUM 153 MMOL/L (135-145); TOTAL CARBON DIOXIDE 32.5 MMOL/L (24-32); TOTAL PROTEIN 6.6 G/DL (6.4-8.2); eGFR 49 ML/MIN
[2018-08-27 03:21] LABS: GLUCOSE 100 MG/DL (70-104)
[2018-08-27] MEDS: ipratropium/albuterol 3ml nebule NEB SCH ×6 (03:30→23:11)
[2018-08-27 03:34] LABS: PLATELET COUNT 33 X10'3 (140-440)
[2018-08-27 03:49] LABS: ANISOCYTOSIS 3+; PLATELET ESTIMATE DECREASED; POLYCHROMASIA FEW
[2018-08-27] MEDS: propofol 1000mg/100ml bottle 100 ML IV PRN ×2 (07:27→17:46)
[2018-08-27] MEDS: levoFLOXACIN-Levaquin 750MG/D5 150 ML IV SCH (07:28)
[2018-08-27] MEDS: pantoprazole 40 MG vial IV SCH ×2 (07:28→20:33)
[2018-08-27] MEDS: nystatin 15 GM powder TP SCH ×3 (07:28→20:33)
[2018-08-27] MEDS: methylnaltrexone br 12mg/0.6ml inj***SubQ only SQ SCH (07:30)
[2018-08-27] MEDS ORDERED: SODIUM TETRADECYL SULFATE 30 MG/ML IV ONE ×2 (14:47→16:09)
[2018-08-27] MEDS: FENTANYL-0.9 % NACL/PF 100 ML IV PRN (22:10)
[2018-08-28] VITALS (23 sets, daily range): BP systolic 81–126; BP diastolic 40–69
[2018-08-28] MEDS: propofol 1000mg/100ml bottle 100 ML IV PRN ×4 (01:30→23:40)
[2018-08-28] MEDS: mineral oil/petrolatum ophthal oint EACHEYE SCH ×4 (02:23→19:57)
[2018-08-28 02:58] LABS: BASOPHILS % (AUTO) 0.2 % (0-1); EOSINOPHILS # (AUTO) 0.1 X10'3 (0-0.9); EOSINOPHILS % (AUTO) 3.5 % (0-6); HEMATOCRIT 25.1 % (42.0-52.0); HEMOGLOBIN 8.4 g/dl (14.0-17.9); LYMPHOCYTES # (AUTO) 0.3 X10'3 (1.1-4.8); MEAN CORPUSCULAR HEMOGLOBIN 31.6 PG (27.0-31.0); MEAN CORPUSCULAR HGB CONC 33.3 % (33.0-36.5); MEAN CORPUSCULAR VOLUME 94.7 FL (78-98); MEAN PLATELET VOLUME 9.6 FL (7.4-10.4); MONOCYTES # (AUTO) 0.2 X10'3 (0-0.9); MONOCYTES % (AUTO) 11.1 % (2-12); NEUTROPHILS # (AUTO) 1.5 X10'3 (1.8-7.7); NEUTROPHILS % (AUTO) 69.2 % (42-75); RED BLOOD COUNT 2.65 X10'6 (4.70-6.10); RED CELL DISTRIBUTION WIDTH 23.1 % (11.5-14.5); WHITE BLOOD COUNT 2.1 X10'3 (4.5-11.0)
[2018-08-28 03:01] LABS: ALANINE AMINOTRANSFERASE 16 U/L (12-78); ALBUMIN 2.1 G/DL (3.4-5.0); ALBUMIN/GLOBULIN RATIO 0.5 (1.1-1.5); ALKALINE PHOSPHATASE 104 IU/L (46-116); ANION GAP 7 (8-16); ASPARTATE AMINO TRANSFERASE 38 U/L (10-37); BILIRUBIN,TOTAL 1.7 MG/DL (0.1-1.0); BLOOD UREA NITROGEN 55 MG/DL (7-18); BUN/CREATININE RATIO 37.9 (5.4-32.0); CALCIUM 7.7 MG/DL (8.5-10.1); CHLORIDE 116 MMOL/L (99-107); CREATININE 1.45 MG/DL (0.60-1.10); MAGNESIUM 2.5 MG/DL (1.5-2.4); POTASSIUM 3.3 MMOL/L (3.5-5.1); SODIUM 153 MMOL/L (135-145); TOTAL CARBON DIOXIDE 30.1 MMOL/L (24-32); TOTAL PROTEIN 6.7 G/DL (6.4-8.2); eGFR 50 ML/MIN
[2018-08-28 03:11] LABS: GLUCOSE 94 MG/DL (70-104)
[2018-08-28] MEDS: ipratropium/albuterol 3ml nebule NEB SCH ×6 (03:32→23:29)
[2018-08-28] MEDS: potassium Cl 40MEQ/250ML bag 250 ML IV PRN (03:42)
[2018-08-28 04:19] LABS: PLATELET COUNT 41 X10'3 (140-440)
[2018-08-28] MEDS: levoFLOXACIN-Levaquin 750MG/D5 150 ML IV SCH (07:16)
[2018-08-28] MEDS: nystatin 15 GM powder TP SCH ×3 (07:21→19:54)
[2018-08-28] MEDS: pantoprazole 40 MG vial IV SCH ×2 (07:21→19:55)
[2018-08-28] MEDS ORDERED: furosemide 40mg/4ml inj IV ONE (10:15)
[2018-08-28 10:16] LABS: ANISOCYTOSIS 3+; PLATELET ESTIMATE DECREASED; ROULEAUX 1+; TOTAL CELLS COUNTED 100
[2018-08-28 10:17] LABS: POLYCHROMASIA 1+
[2018-08-28] MEDS: FENTANYL-0.9 % NACL/PF 100 ML IV PRN ×2 (12:00→19:55)
[2018-08-29] VITALS (24 sets, daily range): BP systolic 77–145; BP diastolic 41–78
[2018-08-29] MEDS: mineral oil/petrolatum ophthal oint EACHEYE SCH ×4 (02:00→19:55)
[2018-08-29 02:34] LABS: BASOPHILS % (AUTO) 0.2 % (0-1); EOSINOPHILS # (AUTO) 0.1 X10'3 (0-0.9); EOSINOPHILS % (AUTO) 2.4 % (0-6); HEMATOCRIT 27.8 % (42.0-52.0); HEMOGLOBIN 8.8 g/dl (14.0-17.9); LYMPHOCYTES # (AUTO) 0.3 X10'3 (1.1-4.8); LYMPHOCYTES % (AUTO) 9.7 % (21-51); MEAN CORPUSCULAR HEMOGLOBIN 30.4 PG (27.0-31.0); MEAN CORPUSCULAR HGB CONC 31.8 % (33.0-36.5); MEAN CORPUSCULAR VOLUME 95.8 FL (78-98); MEAN PLATELET VOLUME 8.8 FL (7.4-10.4); MONOCYTES # (AUTO) 0.4 X10'3 (0-0.9); MONOCYTES % (AUTO) 12.1 % (2-12); NEUTROPHILS # (AUTO) 2.5 X10'3 (1.8-7.7); NEUTROPHILS % (AUTO) 75.6 % (42-75); RED CELL DISTRIBUTION WIDTH 23.6 % (11.5-14.5); WHITE BLOOD COUNT 3.3 X10'3 (4.5-11.0)
[2018-08-29 02:55] LABS: INR 1.5 INR; PROTHROMBIN TIME 14.7 SECONDS (9.0-12.0)
[2018-08-29 02:56] LABS: PARTIAL THROMBOPLASTIN TIME 39 SECONDS (22-32)
[2018-08-29 02:58] LABS: ALANINE AMINOTRANSFERASE 17 U/L (12-78); ALBUMIN/GLOBULIN RATIO 0.4 (1.1-1.5); ALKALINE PHOSPHATASE 112 IU/L (46-116); ANION GAP 8 (8-16); ASPARTATE AMINO TRANSFERASE 35 U/L (10-37); BILIRUBIN,TOTAL 1.4 MG/DL (0.1-1.0); BLOOD UREA NITROGEN 59 MG/DL (7-18); BUN/CREATININE RATIO 38.3 (5.4-32.0); CALCIUM 7.5 MG/DL (8.5-10.1); CHLORIDE 116 MMOL/L (99-107); CREATININE 1.54 MG/DL (0.60-1.10); MAGNESIUM 2.5 MG/DL (1.5-2.4); POTASSIUM 3.6 MMOL/L (3.5-5.1); eGFR 46 ML/MIN
[2018-08-29 03:00] LABS: GLUCOSE 145 MG/DL (70-104)
[2018-08-29 03:03] LABS: SODIUM 155 MMOL/L (135-145)
[2018-08-29] MEDS: ipratropium/albuterol 3ml nebule NEB SCH ×6 (03:06→23:10)
[2018-08-29 03:21] LABS: ABG BASE EXCESS 5.2 mmol/L (-2.0-3.0); ABG HCO3 31.5 mmol/L (22.0-26.0); ABG OXYGEN SATURATION 94.9 % (95-98); ABG PCO2 (T) 55.7 mmHg (35.0-48.0); ABG PH (T) 7.371 (7.350-7.450); ABG PO2 (T) 83.4 mmHg (83-108); ALLEN'S TEST Positive; FMetHb 0.2 % (0.3-1.12); FO2Hb 94.7 % (94-100); MINUTE VOLUME 10 L/min; PATIENT TEMPERATURE 37.2; PEEP 12 cm H2O; RESPIRATORY RATE 18 b/min; RESPIRATORY RATE (OBSERVED) 19 b/min; TIDAL VOLUME 450 mL; TOTAL HEMOGLOBIN 10.3 G/dl (14.0-18.0)
[2018-08-29 04:26] LABS: PLATELET COUNT 38 X10'3 (140-440)
[2018-08-29] MEDS: propofol 1000mg/100ml bottle 100 ML IV PRN ×2 (05:27→14:17)
[2018-08-29] MEDS: nystatin 15 GM powder TP SCH ×3 (07:46→21:33)
[2018-08-29] MEDS: levoFLOXACIN-Levaquin 750MG/D5 150 ML IV SCH (07:46)
[2018-08-29] MEDS: methylnaltrexone br 12mg/0.6ml inj***SubQ only SQ SCH (07:46)
[2018-08-29] MEDS: pantoprazole 40 MG vial IV SCH ×2 (07:46→19:54)
[2018-08-29] MEDS ORDERED: furosemide 10 MG/1 ML 10ml inj IV ONE (09:55)
[2018-08-29] MEDS: FENTANYL-0.9 % NACL/PF 100 ML IV PRN ×2 (10:43→23:36)
[2018-08-30] VITALS (25 sets, daily range): BP systolic 81–137; BP diastolic 43–79
[2018-08-30] MEDS: mineral oil/petrolatum ophthal oint EACHEYE SCH ×4 (01:34→20:59)
[2018-08-30] MEDS: midazolam 100mg in NS 100ml 100 ML IV PRN ×2 (01:34→15:39)
[2018-08-30 02:55] LABS: BASOPHILS % (AUTO) 0.1 % (0-1); EOSINOPHILS # (AUTO) 0.1 X10'3 (0-0.9); EOSINOPHILS % (AUTO) 2.8 % (0-6); HEMATOCRIT 27.7 % (42.0-52.0); HEMOGLOBIN 8.8 g/dl (14.0-17.9); LYMPHOCYTES # (AUTO) 0.4 X10'3 (1.1-4.8); LYMPHOCYTES % (AUTO) 11.4 % (21-51); MEAN CORPUSCULAR HEMOGLOBIN 30.9 PG (27.0-31.0); MEAN CORPUSCULAR HGB CONC 31.9 % (33.0-36.5); MEAN CORPUSCULAR VOLUME 96.7 FL (78-98); MEAN PLATELET VOLUME 9.3 FL (7.4-10.4); MONOCYTES # (AUTO) 0.4 X10'3 (0-0.9); MONOCYTES % (AUTO) 11.9 % (2-12); NEUTROPHILS # (AUTO) 2.8 X10'3 (1.8-7.7); NEUTROPHILS % (AUTO) 73.8 % (42-75); RED BLOOD COUNT 2.86 X10'6 (4.70-6.10); RED CELL DISTRIBUTION WIDTH 23.4 % (11.5-14.5); WHITE BLOOD COUNT 3.8 X10'3 (4.5-11.0)
[2018-08-30 03:04] LABS: PLATELET COUNT 31 X10'3 (140-440)
[2018-08-30 03:06] LABS: ALANINE AMINOTRANSFERASE 22 U/L (12-78); ALBUMIN 1.9 G/DL (3.4-5.0); ALBUMIN/GLOBULIN RATIO 0.4 (1.1-1.5); ALKALINE PHOSPHATASE 104 IU/L (46-116); ANION GAP 6 (8-16); ASPARTATE AMINO TRANSFERASE 68 U/L (10-37); BILIRUBIN,TOTAL 1.4 MG/DL (0.1-1.0); BLOOD UREA NITROGEN 66 MG/DL (7-18); BUN/CREATININE RATIO 44.6 (5.4-32.0); CALCIUM 7.3 MG/DL (8.5-10.1); CHLORIDE 115 MMOL/L (99-107); CREATININE 1.48 MG/DL (0.60-1.10); MAGNESIUM 2.3 MG/DL (1.5-2.4); PHOSPHORUS 5.3 MG/DL (2.3-4.5); POTASSIUM 3.7 MMOL/L (3.5-5.1); SODIUM 152 MMOL/L (135-145); TOTAL CARBON DIOXIDE 30.9 MMOL/L (24-32); TOTAL PROTEIN 6.8 G/DL (6.4-8.2); TRIGLYCERIDES 20 MG/DL (20-135); eGFR 49 ML/MIN
[2018-08-30 03:15] LABS: GLUCOSE 118 MG/DL (70-104)
[2018-08-30] MEDS: ipratropium/albuterol 3ml nebule NEB SCH ×6 (03:16→23:04)
[2018-08-30 03:22] LABS: INR 1.5 INR; PARTIAL THROMBOPLASTIN TIME 40 SECONDS (22-32); PROTHROMBIN TIME 14.9 SECONDS (9.0-12.0)
[2018-08-30 03:30] LABS: ANISOCYTOSIS 3+; PLATELET ESTIMATE DECREASED
[2018-08-30 04:16] LABS: ABG HCO3 30.2 mmol/L (22.0-26.0); ABG OXYGEN SATURATION 92.1 % (95-98); ABG PCO2 (T) 54.3 mmHg (35.0-48.0); ABG PH (T) 7.364 (7.350-7.450); ABG PO2 (T) 70.2 mmHg (83-108); ALLEN'S TEST Positive; FCOHb 0.4 % (0.5-1.5); FMetHb 0.3 % (0.3-1.12); FO2Hb 91.5 % (94-100); PATIENT TEMPERATURE 37.2; PEEP 16 cm H2O; RESPIRATORY RATE 18 b/min; RESPIRATORY RATE (OBSERVED) 18 b/min; TIDAL VOLUME 450 mL; TOTAL HEMOGLOBIN 10.2 G/dl (14.0-18.0)
[2018-08-30] MEDS: pantoprazole 40 MG vial IV SCH ×2 (07:12→20:59)
[2018-08-30] MEDS: nystatin 15 GM powder TP SCH ×3 (07:13→21:49)
[2018-08-30] MEDS: levoFLOXACIN-Levaquin 750MG/D5 150 ML IV SCH (07:13)
[2018-08-30] MEDS: NORepinephrine 8mg/ 250ml NS 250 ML IV SCH (09:55)
[2018-08-30] MEDS: FENTANYL-0.9 % NACL/PF 100 ML IV PRN (18:42)
[2018-08-30] MEDS: acetaminophen 325mg tablet PO PRN (19:31)
[2018-08-31] VITALS (24 sets, daily range): BP systolic 19–142; BP diastolic 43–92
[2018-08-31 00:06] LABS: CLARITY,URINE CLEAR (Clear); COLOR,URINE YELLOW (Yellow); GLUCOSE, URINE NEGATIVE (Neg); KETONES,URINE NEGATIVE (Neg); LEUKOCYTE ESTERASE ,URINE SMALL (Neg); NITRITES, URINE NEGATIVE (Neg); OCCULT BLOOD,URINE TRACE-INTACT (Neg); PH,URINE 5.5 (4.8-8.0); PROTEIN,URINE NEGATIVE (Neg); UROBILINOGEN,URINE 0.2 E.U/dL (0.2-1.0)
[2018-08-31 00:11] LABS: UA COLLECTION TYPE FOLEY CATH
[2018-08-31 00:13] LABS: BACTERIA,URINE FEW /HPF (Neg); RBC,URINE NONE SEEN /HPF (0-2)
[2018-08-31 00:14] LABS: SQUAMOUS EPITHELIAL CELL,UR NONE SEEN /LPF (FEW); YEAST MANY /HPF (NEGATIVE)
[2018-08-31] MEDS: furosemide 40mg/4ml inj IV SCH ×4 (00:38→23:13)
[2018-08-31] MEDS: mineral oil/petrolatum ophthal oint EACHEYE SCH ×4 (02:01→20:32)
[2018-08-31] MEDS: ipratropium/albuterol 3ml nebule NEB SCH ×6 (03:09→23:15)
[2018-08-31 03:27] LABS: BASOPHILS % (AUTO) 0.1 % (0-1); EOSINOPHILS # (AUTO) 0.3 X10'3 (0-0.9); EOSINOPHILS % (AUTO) 3.6 % (0-6); HEMATOCRIT 30.4 % (42.0-52.0); LYMPHOCYTES # (AUTO) 0.8 X10'3 (1.1-4.8); LYMPHOCYTES % (AUTO) 11.6 % (21-51); MEAN CORPUSCULAR HGB CONC 32.8 % (33.0-36.5); MEAN CORPUSCULAR VOLUME 94.7 FL (78-98); MEAN PLATELET VOLUME 9.2 FL (7.4-10.4); MONOCYTES # (AUTO) 0.9 X10'3 (0-0.9); MONOCYTES % (AUTO) 12.6 % (2-12); NEUTROPHILS # (AUTO) 5.3 X10'3 (1.8-7.7); NEUTROPHILS % (AUTO) 72.1 % (42-75); RED BLOOD COUNT 3.21 X10'6 (4.70-6.10); RED CELL DISTRIBUTION WIDTH 23.5 % (11.5-14.5); WHITE BLOOD COUNT 7.3 X10'3 (4.5-11.0)
[2018-08-31 03:47] LABS: INR 1.6 INR; PARTIAL THROMBOPLASTIN TIME 43 SECONDS (22-32); PLATELET COUNT 38 X10'3 (140-440); PROTHROMBIN TIME 15.4 SECONDS (9.0-12.0)
[2018-08-31 03:50] LABS: ABG BASE EXCESS 4.2 mmol/L (-2.0-3.0); ABG HCO3 29.8 mmol/L (22.0-26.0); ABG OXYGEN SATURATION 94.3 % (95-98); ABG PCO2 (T) 52.1 mmHg (35.0-48.0); ABG PO2 (T) 82.9 mmHg (83-108); ALLEN'S TEST Positive; FCOHb 0.7 % (0.5-1.5); FMetHb 0.2 % (0.3-1.12); FO2Hb 93.5 % (94-100); MINUTE VOLUME 8 L/min; PATIENT TEMPERATURE 38.2; PEEP 8 cm H2O; RESPIRATORY RATE 18 b/min; RESPIRATORY RATE (OBSERVED) 18 b/min; TIDAL VOLUME 450 mL; TOTAL HEMOGLOBIN 10.9 G/dl (14.0-18.0)
[2018-08-31 03:52] LABS: ALANINE AMINOTRANSFERASE 24 U/L (12-78); ALBUMIN 1.9 G/DL (3.4-5.0); ALBUMIN/GLOBULIN RATIO 0.4 (1.1-1.5); ALKALINE PHOSPHATASE 102 IU/L (46-116); ANION GAP 7 (8-16); ASPARTATE AMINO TRANSFERASE 73 U/L (10-37); BLOOD UREA NITROGEN 78 MG/DL (7-18); BUN/CREATININE RATIO 49.4 (5.4-32.0); CALCIUM 7.2 MG/DL (8.5-10.1); CHLORIDE 114 MMOL/L (99-107); CREATININE 1.58 MG/DL (0.60-1.10); MAGNESIUM 2.2 MG/DL (1.5-2.4); PHOSPHORUS 4.6 MG/DL (2.3-4.5); POTASSIUM 3.1 MMOL/L (3.5-5.1); SODIUM 151 MMOL/L (135-145); TOTAL CARBON DIOXIDE 30.4 MMOL/L (24-32); TOTAL PROTEIN 6.8 G/DL (6.4-8.2); eGFR 45 ML/MIN
[2018-08-31 03:54] LABS: GLUCOSE 122 MG/DL (70-104)
[2018-08-31 05:15] LABS: ANISOCYTOSIS 3+; LARGE PLATELETS FEW; PLATELET ESTIMATE DECREASED; POLYCHROMASIA FEW; SCHISTOCYTES FEW
[2018-08-31] MEDS: potassium Cl 40MEQ/250ML bag 250 ML IV PRN (06:01)
[2018-08-31] MEDS: methylnaltrexone br 12mg/0.6ml inj***SubQ only SQ SCH (06:48)
[2018-08-31] MEDS: pantoprazole 40 MG vial IV SCH ×2 (07:03→20:32)
[2018-08-31] MEDS: levoFLOXACIN-Levaquin 750MG/D5 150 ML IV SCH (07:03)
[2018-08-31] MEDS: nystatin 15 GM powder TP SCH ×3 (07:03→21:06)
[2018-08-31] MEDS: midazolam 100mg in NS 100ml 100 ML IV PRN (08:14)
[2018-08-31] MEDS: FENTANYL-0.9 % NACL/PF 100 ML IV PRN (08:15)
[2018-08-31] MEDS: piperacillin-tazo 2.25gm/50ml 50 ML IV SCH (19:14)
[2018-08-31] MEDS: NORepinephrine 8mg/ 250ml NS 250 ML IV SCH (19:15)
[2018-08-31] MEDS: linezolid 600mg/300ml PREMIX 300 ML IV SCH (20:32)
[2018-09-01] VITALS (27 sets, daily range): BP systolic 95–123; BP diastolic 47–83
[2018-09-01] MEDS: piperacillin-tazo 2.25gm/50ml 50 ML IV SCH ×4 (02:58→20:13)
[2018-09-01] MEDS: mineral oil/petrolatum ophthal oint EACHEYE SCH ×4 (02:58→20:14)
[2018-09-01] MEDS: ipratropium/albuterol 3ml nebule NEB SCH ×6 (03:20→23:26)
[2018-09-01 04:00] LABS: ABG BASE EXCESS 5.4 mmol/L (-2.0-3.0); ABG HCO3 30.9 mmol/L (22.0-26.0); ABG OXYGEN SATURATION 91.2 % (95-98); ABG PCO2 (T) 50.5 mmHg (35.0-48.0); ABG PH (T) 7.407 (7.350-7.450); ABG PO2 (T) 66.9 mmHg (83-108); ALLEN'S TEST Positive; FCOHb 0.4 % (0.5-1.5); FMetHb 0.2 % (0.3-1.12); FO2Hb 90.7 % (94-100); MINUTE VOLUME 8 L/min; PATIENT TEMPERATURE 37.3; PEEP 8 cm H2O; RESPIRATORY RATE 18 b/min; RESPIRATORY RATE (OBSERVED) 18 b/min; TIDAL VOLUME 450 mL; TOTAL HEMOGLOBIN 10.8 G/dl (14.0-18.0)
[2018-09-01 04:01] LABS: BASOPHILS % (AUTO) 0.2 % (0-1); EOSINOPHILS # (AUTO) 0.2 X10'3 (0-0.9); EOSINOPHILS % (AUTO) 3.7 % (0-6); HEMATOCRIT 29.5 % (42.0-52.0); HEMOGLOBIN 9.6 g/dl (14.0-17.9); LYMPHOCYTES # (AUTO) 0.7 X10'3 (1.1-4.8); LYMPHOCYTES % (AUTO) 13.3 % (21-51); MEAN CORPUSCULAR HGB CONC 32.7 % (33.0-36.5); MEAN CORPUSCULAR VOLUME 95.1 FL (78-98); MEAN PLATELET VOLUME 9.4 FL (7.4-10.4); MONOCYTES # (AUTO) 0.7 X10'3 (0-0.9); MONOCYTES % (AUTO) 12.7 % (2-12); NEUTROPHILS # (AUTO) 3.8 X10'3 (1.8-7.7); NEUTROPHILS % (AUTO) 70.1 % (42-75); WHITE BLOOD COUNT 5.5 X10'3 (4.5-11.0)
[2018-09-01 04:10] LABS: PLATELET COUNT 34 X10'3 (140-440)
[2018-09-01 04:13] LABS: INR 1.5 INR; PARTIAL THROMBOPLASTIN TIME 41 SECONDS (22-32); PROTHROMBIN TIME 15.3 SECONDS (9.0-12.0)
[2018-09-01 04:15] LABS: ALANINE AMINOTRANSFERASE 23 U/L (12-78); ALBUMIN 1.9 G/DL (3.4-5.0); ALBUMIN/GLOBULIN RATIO 0.4 (1.1-1.5); ALKALINE PHOSPHATASE 96 IU/L (46-116); ANION GAP 5 (8-16); ASPARTATE AMINO TRANSFERASE 61 U/L (10-37); BILIRUBIN,TOTAL 1.6 MG/DL (0.1-1.0); BLOOD UREA NITROGEN 80 MG/DL (7-18); BUN/CREATININE RATIO 57.1 (5.4-32.0); CALCIUM 7.2 MG/DL (8.5-10.1); CHLORIDE 114 MMOL/L (99-107); PHOSPHORUS 4.5 MG/DL (2.3-4.5); POTASSIUM 3.4 MMOL/L (3.5-5.1); SODIUM 151 MMOL/L (135-145); TOTAL CARBON DIOXIDE 31.6 MMOL/L (24-32); TOTAL PROTEIN 6.7 G/DL (6.4-8.2); eGFR 52 ML/MIN
[2018-09-01 04:21] LABS: GLUCOSE 123 MG/DL (70-104)
[2018-09-01] MEDS: linezolid 600mg/300ml PREMIX 300 ML IV SCH ×2 (08:26→21:51)
[2018-09-01] MEDS: furosemide 40mg/4ml inj IV SCH ×2 (08:26→20:14)
[2018-09-01] MEDS: FENTANYL-0.9 % NACL/PF 100 ML IV PRN (08:26)
[2018-09-01] MEDS: pantoprazole 40 MG vial IV SCH ×2 (08:26→20:13)
[2018-09-01] MEDS: nystatin 15 GM powder TP SCH ×3 (08:27→20:15)
[2018-09-01] MEDS: potassium Cl 40MEQ/250ML bag 250 ML IV PRN (13:51)
[2018-09-02] VITALS (33 sets, daily range): BP systolic 90–118; BP diastolic 47–68
[2018-09-02] MEDS: mineral oil/petrolatum ophthal oint EACHEYE SCH ×4 (01:10→19:19)
[2018-09-02] MEDS: piperacillin-tazo 2.25gm/50ml 50 ML IV SCH ×2 (01:12→08:18)
[2018-09-02] MEDS: FENTANYL-0.9 % NACL/PF 100 ML IV PRN ×3 (01:15→19:17)
[2018-09-02 02:19] LABS: BASOPHILS % (AUTO) 0 % (0-1); EOSINOPHILS # (AUTO) 0.2 X10'3 (0-0.9); EOSINOPHILS % (AUTO) 4.8 % (0-6); HEMATOCRIT 28.4 % (42.0-52.0); HEMOGLOBIN 9.2 g/dl (14.0-17.9); LYMPHOCYTES # (AUTO) 0.5 X10'3 (1.1-4.8); LYMPHOCYTES % (AUTO) 12.5 % (21-51); MEAN CORPUSCULAR HEMOGLOBIN 30.8 PG (27.0-31.0); MEAN CORPUSCULAR HGB CONC 32.4 % (33.0-36.5); MEAN CORPUSCULAR VOLUME 94.9 FL (78-98); MEAN PLATELET VOLUME 9.4 FL (7.4-10.4); MONOCYTES # (AUTO) 0.5 X10'3 (0-0.9); MONOCYTES % (AUTO) 13.1 % (2-12); NEUTROPHILS # (AUTO) 2.8 X10'3 (1.8-7.7); NEUTROPHILS % (AUTO) 69.6 % (42-75); RED BLOOD COUNT 2.99 X10'6 (4.70-6.10); RED CELL DISTRIBUTION WIDTH 23.1 % (11.5-14.5); WHITE BLOOD COUNT 4.1 X10'3 (4.5-11.0)
[2018-09-02 02:26] LABS: PLATELET COUNT 30 X10'3 (140-440)
[2018-09-02 02:31] LABS: ALANINE AMINOTRANSFERASE 22 U/L (12-78); ALBUMIN 1.8 G/DL (3.4-5.0); ALBUMIN/GLOBULIN RATIO 0.4 (1.1-1.5); ALKALINE PHOSPHATASE 83 IU/L (46-116); ANION GAP 3 (8-16); ASPARTATE AMINO TRANSFERASE 50 U/L (10-37); BILIRUBIN,TOTAL 1.7 MG/DL (0.1-1.0); BLOOD UREA NITROGEN 71 MG/DL (7-18); BUN/CREATININE RATIO 49.7 (5.4-32.0); CALCIUM 7.4 MG/DL (8.5-10.1); CHLORIDE 112 MMOL/L (99-107); CREATININE 1.43 MG/DL (0.60-1.10); MAGNESIUM 1.7 MG/DL (1.5-2.4); PHOSPHORUS 4.1 MG/DL (2.3-4.5); SODIUM 148 MMOL/L (135-145); TOTAL PROTEIN 6.4 G/DL (6.4-8.2); eGFR 51 ML/MIN
[2018-09-02 02:32] LABS: GLUCOSE 125 MG/DL (70-104)
[2018-09-02 02:37] LABS: INR 1.6 INR; PARTIAL THROMBOPLASTIN TIME 43 SECONDS (22-32); PROTHROMBIN TIME 15.4 SECONDS (9.0-12.0)
[2018-09-02] MEDS: ipratropium/albuterol 3ml nebule NEB SCH ×6 (03:35→23:19)
[2018-09-02 03:46] LABS: ABG BASE EXCESS 6.7 mmol/L (-2.0-3.0); ABG HCO3 31.9 mmol/L (22.0-26.0); ABG PCO2 (T) 47.8 mmHg (35.0-48.0); ABG PH (T) 7.439 (7.350-7.450); ABG PO2 (T) 67.2 mmHg (83-108); ALLEN'S TEST Positive; FCOHb 0.8 % (0.5-1.5); FMetHb 0.3 % (0.3-1.12); MINUTE VOLUME 8 L/min; PATIENT TEMPERATURE 36.5; PEEP 5 cm H2O; RESPIRATORY RATE 18 b/min; RESPIRATORY RATE (OBSERVED) 18 b/min; TIDAL VOLUME 450 mL; TOTAL HEMOGLOBIN 10.3 G/dl (14.0-18.0)
[2018-09-02] MEDS: midazolam 100mg in NS 100ml 100 ML IV PRN (03:54)
[2018-09-02] MEDS: potassium Cl 40MEQ/250ML bag 250 ML IV PRN ×3 (03:55→16:34)
[2018-09-02] MEDS ORDERED: levoFLOXACIN-Levaquin 750MG/D5 150 ML IV SCH (08:00)
[2018-09-02] MEDS: methylnaltrexone br 12mg/0.6ml inj***SubQ only SQ SCH (08:00)
[2018-09-02] MEDS: nystatin 15 GM powder TP SCH ×3 (08:18→19:20)
[2018-09-02] MEDS: furosemide 40mg/4ml inj IV SCH ×2 (08:18→19:19)
[2018-09-02] MEDS: linezolid 600mg/300ml PREMIX 300 ML IV SCH (08:18)
[2018-09-02] MEDS: pantoprazole 40 MG vial IV SCH ×2 (08:18→19:19)
[2018-09-02] MEDS ORDERED: morphine 10mg/ml inj. 100 MG in normal saline 100ml IV soln 90 ML IV SCH (12:45)
[2018-09-02 13:13] LABS: BASOPHILS % (AUTO) 0 % (0-1); EOSINOPHILS # (AUTO) 0.2 X10'3 (0-0.9); HEMATOCRIT 28.1 % (42.0-52.0); HEMOGLOBIN 9.1 g/dl (14.0-17.9); LYMPHOCYTES # (AUTO) 0.4 X10'3 (1.1-4.8); LYMPHOCYTES % (AUTO) 10.4 % (21-51); MEAN CORPUSCULAR HGB CONC 32.5 % (33.0-36.5); MEAN CORPUSCULAR VOLUME 95.5 FL (78-98); MEAN PLATELET VOLUME 8.5 FL (7.4-10.4); MONOCYTES # (AUTO) 0.5 X10'3 (0-0.9); MONOCYTES % (AUTO) 13.4 % (2-12); NEUTROPHILS # (AUTO) 2.7 X10'3 (1.8-7.7); NEUTROPHILS % (AUTO) 71.2 % (42-75); RED BLOOD COUNT 2.94 X10'6 (4.70-6.10); RED CELL DISTRIBUTION WIDTH 24.3 % (11.5-14.5); WHITE BLOOD COUNT 3.8 X10'3 (4.5-11.0)
[2018-09-02] MEDS ORDERED: LIDOcaine 1%/PF 5ML 10 MG/ML VIAL ONE (13:18)
[2018-09-02] MEDS: piperacillin/tazo 3.375gm/50ml 50 ML IV SCH ×2 (13:29→19:19)
[2018-09-02 13:44] LABS: PLATELET COUNT 42 X10'3 (140-440)
[2018-09-02 13:59] LABS: ANISOCYTOSIS 3+; ELLIPTOCYTES FEW; PLATELET ESTIMATE DECREASED; SCHISTOCYTES FEW; TEAR DROP CELLS FEW
[2018-09-02] MEDS: NORepinephrine 8mg/ 250ml NS 250 ML IV SCH (15:32)
[2018-09-02 17:15] LABS: BASOPHILS % (AUTO) 0.1 % (0-1); EOSINOPHILS # (AUTO) 0.2 X10'3 (0-0.9); EOSINOPHILS % (AUTO) 5.4 % (0-6); HEMATOCRIT 27.3 % (42.0-52.0); HEMOGLOBIN 8.7 g/dl (14.0-17.9); LYMPHOCYTES # (AUTO) 0.3 X10'3 (1.1-4.8); LYMPHOCYTES % (AUTO) 10.1 % (21-51); MEAN CORPUSCULAR HEMOGLOBIN 30.4 PG (27.0-31.0); MEAN CORPUSCULAR VOLUME 95.1 FL (78-98); MEAN PLATELET VOLUME 9.5 FL (7.4-10.4); MONOCYTES # (AUTO) 0.5 X10'3 (0-0.9); MONOCYTES % (AUTO) 14.5 % (2-12); NEUTROPHILS # (AUTO) 2.4 X10'3 (1.8-7.7); NEUTROPHILS % (AUTO) 69.9 % (42-75); PLATELET COUNT 51 X10'3 (140-440); RED BLOOD COUNT 2.87 X10'6 (4.70-6.10); WHITE BLOOD COUNT 3.4 X10'3 (4.5-11.0)
[2018-09-03] VITALS (27 sets, daily range): BP systolic 97–135; BP diastolic 49–79
[2018-09-03] MEDS: piperacillin/tazo 3.375gm/50ml 50 ML IV SCH ×4 (01:33→20:57)
[2018-09-03] MEDS: mineral oil/petrolatum ophthal oint EACHEYE SCH ×4 (01:33→20:58)
[2018-09-03] MEDS: midazolam 100mg in NS 100ml 100 ML IV PRN (01:34)
[2018-09-03 02:35] LABS: BASOPHILS % (AUTO) 0.2 % (0-1); EOSINOPHILS # (AUTO) 0.2 X10'3 (0-0.9); HEMOGLOBIN 9.2 g/dl (14.0-17.9); LYMPHOCYTES # (AUTO) 0.6 X10'3 (1.1-4.8); LYMPHOCYTES % (AUTO) 12.2 % (21-51); MEAN CORPUSCULAR HEMOGLOBIN 31.3 PG (27.0-31.0); MEAN CORPUSCULAR HGB CONC 32.8 % (33.0-36.5); MEAN CORPUSCULAR VOLUME 95.4 FL (78-98); MEAN PLATELET VOLUME 10.4 FL (7.4-10.4); MONOCYTES # (AUTO) 0.6 X10'3 (0-0.9); MONOCYTES % (AUTO) 12.8 % (2-12); NEUTROPHILS # (AUTO) 3.3 X10'3 (1.8-7.7); NEUTROPHILS % (AUTO) 69.8 % (42-75); PLATELET COUNT 52 X10'3 (140-440); RED BLOOD COUNT 2.94 X10'6 (4.70-6.10); RED CELL DISTRIBUTION WIDTH 22.9 % (11.5-14.5); WHITE BLOOD COUNT 4.7 X10'3 (4.5-11.0)
[2018-09-03 02:46] LABS: INR 1.5 INR; PARTIAL THROMBOPLASTIN TIME 40 SECONDS (22-32); PROTHROMBIN TIME 14.8 SECONDS (9.0-12.0)
[2018-09-03 02:47] LABS: ALANINE AMINOTRANSFERASE 21 U/L (12-78); ALBUMIN 1.9 G/DL (3.4-5.0); ALBUMIN/GLOBULIN RATIO 0.4 (1.1-1.5); ALKALINE PHOSPHATASE 92 IU/L (46-116); ANION GAP 6 (8-16); ASPARTATE AMINO TRANSFERASE 48 U/L (10-37); BILIRUBIN,TOTAL 1.7 MG/DL (0.1-1.0); BLOOD UREA NITROGEN 64 MG/DL (7-18); BUN/CREATININE RATIO 56.6 (5.4-32.0); CALCIUM 7.7 MG/DL (8.5-10.1); CHLORIDE 112 MMOL/L (99-107); CREATININE 1.13 MG/DL (0.60-1.10); GLUCOSE 121 MG/DL (70-104); MAGNESIUM 1.7 MG/DL (1.5-2.4); PHOSPHORUS 3.9 MG/DL (2.3-4.5); POTASSIUM 3.4 MMOL/L (3.5-5.1); SODIUM 149 MMOL/L (135-145); TOTAL CARBON DIOXIDE 31.4 MMOL/L (24-32); TOTAL PROTEIN 6.5 G/DL (6.4-8.2); eGFR 66 ML/MIN
[2018-09-03 03:03] LABS: ACANTHOCYTES FEW; ANISOCYTOSIS 3+; PLATELET ESTIMATE DECREASED
[2018-09-03 03:04] LABS: POLYCHROMASIA FEW
[2018-09-03] MEDS: potassium Cl 40MEQ/250ML bag 250 ML IV PRN (03:26)
[2018-09-03] MEDS: ipratropium/albuterol 3ml nebule NEB SCH ×5 (03:45→19:22)
[2018-09-03 04:01] LABS: ABG BASE EXCESS 5.4 mmol/L (-2.0-3.0); ABG HCO3 31.5 mmol/L (22.0-26.0); ABG OXYGEN SATURATION 94.3 % (95-98); ABG PCO2 (T) 53.8 mmHg (35.0-48.0); ABG PH (T) 7.387 (7.350-7.450); ABG PO2 (T) 79.7 mmHg (83-108); ALLEN'S TEST Positive; FCOHb 0.9 % (0.5-1.5); FMetHb 0.1 % (0.3-1.12); FO2Hb 93.4 % (94-100); PATIENT TEMPERATURE 37.2; PEEP 5 cm H2O; RESPIRATORY RATE 18 b/min; RESPIRATORY RATE (OBSERVED) 20 b/min; TIDAL VOLUME 450 mL
[2018-09-03] MEDS: FENTANYL-0.9 % NACL/PF 100 ML IV PRN ×2 (04:22→16:39)
[2018-09-03] MEDS ORDERED: rocuronium 10mg/ml inj IV ONE ×2 (07:10→12:30)
[2018-09-03] MEDS: furosemide 40mg/4ml inj IV SCH ×2 (08:21→20:57)
[2018-09-03] MEDS: pantoprazole 40 MG vial IV SCH ×2 (08:21→20:57)
[2018-09-03] MEDS: nystatin 15 GM powder TP SCH ×3 (08:22→20:58)
[2018-09-03] MEDS ORDERED: CISatracurium **Bolus** 2 mg/ml inj IV ONE (10:00)
[2018-09-03] MEDS ORDERED: propofol 1000mg/100ml bottle 100 ML IV ONE (10:28)
[2018-09-03] MEDS ORDERED: propofol 1000mg/100ml bottle 100 ML IV PRN (10:47)
[2018-09-03] MEDS ORDERED: morphine/NS 100mg/100ml bag 100 ML IV SCH (13:50)
[2018-09-03] MEDS: NORepinephrine 8mg/ 250ml NS 250 ML IV SCH (20:57)
[2018-09-03] MEDS ORDERED: dextrose 5%-1/2 normal saline 1,000 ML IV SCH (22:00)
[2018-09-04] VITALS (24 sets, daily range): BP systolic 87–134; BP diastolic 48–72
[2018-09-04] MEDS: ipratropium/albuterol 3ml nebule NEB SCH ×7 (00:04→23:18)
[2018-09-04 02:36] LABS: BASOPHILS % (AUTO) 0.1 % (0-1); EOSINOPHILS # (AUTO) 0.1 X10'3 (0-0.9); EOSINOPHILS % (AUTO) 2.7 % (0-6); HEMATOCRIT 27.5 % (42.0-52.0); HEMOGLOBIN 9.1 g/dl (14.0-17.9); LYMPHOCYTES # (AUTO) 0.5 X10'3 (1.1-4.8); LYMPHOCYTES % (AUTO) 10.1 % (21-51); MEAN CORPUSCULAR HEMOGLOBIN 31.3 PG (27.0-31.0); MEAN CORPUSCULAR HGB CONC 33.1 % (33.0-36.5); MEAN CORPUSCULAR VOLUME 94.7 FL (78-98); MONOCYTES # (AUTO) 0.5 X10'3 (0-0.9); MONOCYTES % (AUTO) 10.7 % (2-12); NEUTROPHILS # (AUTO) 3.4 X10'3 (1.8-7.7); NEUTROPHILS % (AUTO) 76.4 % (42-75); RED CELL DISTRIBUTION WIDTH 22.9 % (11.5-14.5); WHITE BLOOD COUNT 4.5 X10'3 (4.5-11.0)
[2018-09-04] MEDS: mineral oil/petrolatum ophthal oint EACHEYE SCH ×4 (02:39→20:59)
[2018-09-04] MEDS: piperacillin/tazo 3.375gm/50ml 50 ML IV SCH ×4 (02:39→20:56)
[2018-09-04 02:49] LABS: PLATELET COUNT 44 X10'3 (140-440)
[2018-09-04 02:51] LABS: ALANINE AMINOTRANSFERASE 19 U/L (12-78); ALBUMIN 1.8 G/DL (3.4-5.0); ALBUMIN/GLOBULIN RATIO 0.4 (1.1-1.5); ALKALINE PHOSPHATASE 82 IU/L (46-116); ANION GAP 6 (8-16); ASPARTATE AMINO TRANSFERASE 38 U/L (10-37); BILIRUBIN,TOTAL 2.3 MG/DL (0.1-1.0); BLOOD UREA NITROGEN 55 MG/DL (7-18); BUN/CREATININE RATIO 48.2 (5.4-32.0); CALCIUM 7.7 MG/DL (8.5-10.1); CHLORIDE 112 MMOL/L (99-107); CREATININE 1.14 MG/DL (0.60-1.10); MAGNESIUM 1.7 MG/DL (1.5-2.4); PHOSPHORUS 3.9 MG/DL (2.3-4.5); POTASSIUM 3.3 MMOL/L (3.5-5.1); SODIUM 150 MMOL/L (135-145); TOTAL CARBON DIOXIDE 32.1 MMOL/L (24-32); TOTAL PROTEIN 6.4 G/DL (6.4-8.2); eGFR 66 ML/MIN
[2018-09-04 02:52] LABS: GLUCOSE 106 MG/DL (70-104)
[2018-09-04 03:03] LABS: INR 1.5 INR; PARTIAL THROMBOPLASTIN TIME 41 SECONDS (22-32); PROTHROMBIN TIME 15.1 SECONDS (9.0-12.0)
[2018-09-04] MEDS: potassium Cl 40MEQ/250ML bag 250 ML IV PRN (03:43)
[2018-09-04 04:05] LABS: ABG BASE EXCESS 6.9 mmol/L (-2.0-3.0); ABG HCO3 32.3 mmol/L (22.0-26.0); ABG OXYGEN SATURATION 95.1 % (95-98); ABG PCO2 (T) 50.4 mmHg (35.0-48.0); ABG PH (T) 7.425 (7.350-7.450); ABG PO2 (T) 80.9 mmHg (83-108); ALLEN'S TEST Positive; FCOHb 0.6 % (0.5-1.5); FO2Hb 94.5 % (94-100); PATIENT TEMPERATURE 37.1; PEEP 5 cm H2O; RESPIRATORY RATE 18 b/min; RESPIRATORY RATE (OBSERVED) 19 b/min; TIDAL VOLUME 450 mL; TOTAL HEMOGLOBIN 10.3 G/dl (14.0-18.0)
[2018-09-04] MEDS: FENTANYL-0.9 % NACL/PF 100 ML IV PRN ×2 (05:02→22:14)
[2018-09-04] MEDS: midazolam 100mg in NS 100ml 100 ML IV PRN (05:03)
[2018-09-04] MEDS: methylnaltrexone br 12mg/0.6ml inj***SubQ only SQ SCH (07:41)
[2018-09-04] MEDS: nystatin 15 GM powder TP SCH ×3 (07:41→20:56)
[2018-09-04] MEDS: furosemide 40mg/4ml inj IV SCH ×2 (07:41→20:55)
[2018-09-04] MEDS: pantoprazole 40 MG vial IV SCH ×2 (07:41→20:55)
[2018-09-04 09:17] LABS: ANISOCYTOSIS 3+; PLATELET ESTIMATE DECREASED; POIKILOCYTOSIS FEW; POLYCHROMASIA 2+; SCHISTOCYTES FEW
[2018-09-04] MEDS ORDERED: albumin (human) 25% 100ml IV 100 ML IV ONE (15:10)
[2018-09-04 20:43] LABS: ANION GAP 6 (8-16); BLOOD UREA NITROGEN 51 MG/DL (7-18); BUN/CREATININE RATIO 45.1 (5.4-32.0); CALCIUM 7.7 MG/DL (8.5-10.1); CHLORIDE 110 MMOL/L (99-107); CREATININE 1.13 MG/DL (0.60-1.10); POTASSIUM 3.2 MMOL/L (3.5-5.1); SODIUM 149 MMOL/L (135-145); TOTAL CARBON DIOXIDE 33.3 MMOL/L (24-32); eGFR 66 ML/MIN
[2018-09-04 20:45] LABS: GLUCOSE 115 MG/DL (70-104)
[2018-09-05] VITALS (26 sets, daily range): BP systolic 90–132; BP diastolic 43–75
[2018-09-05] MEDS: mineral oil/petrolatum ophthal oint EACHEYE SCH ×4 (02:55→20:25)
[2018-09-05] MEDS: piperacillin/tazo 3.375gm/50ml 50 ML IV SCH ×4 (02:55→20:26)
[2018-09-05 03:46] LABS: ALANINE AMINOTRANSFERASE 21 U/L (12-78); ALBUMIN 1.9 G/DL (3.4-5.0); ALBUMIN/GLOBULIN RATIO 0.4 (1.1-1.5); ALKALINE PHOSPHATASE 91 IU/L (46-116); ANION GAP 7 (8-16); ASPARTATE AMINO TRANSFERASE 36 U/L (10-37); BILIRUBIN,TOTAL 1.8 MG/DL (0.1-1.0); BLOOD UREA NITROGEN 49 MG/DL (7-18); CALCIUM 7.8 MG/DL (8.5-10.1); CHLORIDE 110 MMOL/L (99-107); CREATININE 1.09 MG/DL (0.60-1.10); MAGNESIUM 1.5 MG/DL (1.5-2.4); PHOSPHORUS 3.9 MG/DL (2.3-4.5); SODIUM 149 MMOL/L (135-145); TOTAL CARBON DIOXIDE 32.3 MMOL/L (24-32); TOTAL PROTEIN 6.2 G/DL (6.4-8.2); eGFR 69 ML/MIN
[2018-09-05 03:47] LABS: GLUCOSE 129 MG/DL (70-104)
[2018-09-05] MEDS: ipratropium/albuterol 3ml nebule NEB SCH ×6 (03:48→23:15)
[2018-09-05 03:50] LABS: INR 1.6 INR; PARTIAL THROMBOPLASTIN TIME 42 SECONDS (22-32); PROTHROMBIN TIME 15.8 SECONDS (9.0-12.0)
[2018-09-05 04:00] LABS: BASOPHILS % (AUTO) 0.1 % (0-1); EOSINOPHILS # (AUTO) 0.1 X10'3 (0-0.9); EOSINOPHILS % (AUTO) 2.3 % (0-6); HEMATOCRIT 25.1 % (42.0-52.0); HEMOGLOBIN 8.3 g/dl (14.0-17.9); LYMPHOCYTES # (AUTO) 0.4 X10'3 (1.1-4.8); LYMPHOCYTES % (AUTO) 9.1 % (21-51); MEAN CORPUSCULAR HEMOGLOBIN 32.2 PG (27.0-31.0); MEAN CORPUSCULAR HGB CONC 33.2 % (33.0-36.5); MEAN PLATELET VOLUME 10.2 FL (7.4-10.4); MONOCYTES # (AUTO) 0.5 X10'3 (0-0.9); MONOCYTES % (AUTO) 12.6 % (2-12); NEUTROPHILS % (AUTO) 75.9 % (42-75); RED BLOOD COUNT 2.59 X10'6 (4.70-6.10); RED CELL DISTRIBUTION WIDTH 23.7 % (11.5-14.5); WHITE BLOOD COUNT 3.9 X10'3 (4.5-11.0)
[2018-09-05 04:05] LABS: ABG BASE EXCESS 7.2 mmol/L (-2.0-3.0); ABG HCO3 33.1 mmol/L (22.0-26.0); ABG OXYGEN SATURATION 92.7 % (95-98); ABG PCO2 (T) 54.5 mmHg (35.0-48.0); ABG PH (T) 7.402 (7.350-7.450); ABG PO2 (T) 70.4 mmHg (83-108); ALLEN'S TEST V; FCOHb 0.2 % (0.5-1.5); FMetHb 0.1 % (0.3-1.12); FO2Hb 92.4 % (94-100); PATIENT TEMPERATURE 37.1; PEEP 5 cm H2O; RESPIRATORY RATE 18 b/min; RESPIRATORY RATE (OBSERVED) 20 b/min; TIDAL VOLUME 450 mL; TOTAL HEMOGLOBIN 9.7 G/dl (14.0-18.0)
[2018-09-05 04:13] LABS: PLATELET COUNT 37 X10'3 (140-440)
[2018-09-05] MEDS: potassium Cl 40MEQ/250ML bag 250 ML IV PRN ×3 (04:14→17:31)
[2018-09-05 07:29] LABS: ANISOCYTOSIS 3+; PLATELET ESTIMATE DECREASED
[2018-09-05 07:30] LABS: POIKILOCYTOSIS FEW; POLYCHROMASIA 2+
[2018-09-05] MEDS: pantoprazole 40 MG vial IV SCH ×2 (07:50→20:25)
[2018-09-05] MEDS: furosemide 40mg/4ml inj IV SCH ×2 (07:50→20:25)
[2018-09-05] MEDS: nystatin 15 GM powder TP SCH ×3 (07:51→20:25)
[2018-09-05] MEDS: NORepinephrine 8mg/ 250ml NS 250 ML IV SCH (09:45)
[2018-09-05] MEDS: acetaminophen 325mg tablet PO PRN (19:13)
[2018-09-05] MEDS ORDERED: acetaminophen 1,000mg/100ml IV 100 ML IV SCH (23:55)
[2018-09-06] VITALS (22 sets, daily range): BP systolic 95–174; BP diastolic 48–76
[2018-09-06] MEDS: piperacillin/tazo 3.375gm/50ml 50 ML IV SCH ×4 (02:12→20:25)
[2018-09-06] MEDS: mineral oil/petrolatum ophthal oint EACHEYE SCH ×4 (02:12→20:23)
[2018-09-06] MEDS: ipratropium/albuterol 3ml nebule NEB SCH ×6 (02:54→23:05)
[2018-09-06 03:10] LABS: ABG HCO3 30.9 mmol/L (22.0-26.0); ABG OXYGEN SATURATION 95.7 % (95-98); ABG PCO2 (T) 48.5 mmHg (35.0-48.0); ABG PH (T) 7.426 (7.350-7.450); ABG PO2 (T) 90.3 mmHg (83-108); ALLEN'S TEST Positive; FCOHb 0.3 % (0.5-1.5); FMetHb 0.2 % (0.3-1.12); FO2Hb 95.2 % (94-100); MINUTE VOLUME 10 L/min; PEEP 5 cm H2O; RESPIRATORY RATE (OBSERVED) 22 b/min; TOTAL HEMOGLOBIN 9.4 G/dl (14.0-18.0)
[2018-09-06 04:31] LABS: ALANINE AMINOTRANSFERASE 21 U/L (12-78); ALBUMIN/GLOBULIN RATIO 0.4 (1.1-1.5); ALKALINE PHOSPHATASE 95 IU/L (46-116); ANION GAP 6 (8-16); ASPARTATE AMINO TRANSFERASE 39 U/L (10-37); BILIRUBIN,TOTAL 1.6 MG/DL (0.1-1.0); BLOOD UREA NITROGEN 49 MG/DL (7-18); CALCIUM 7.6 MG/DL (8.5-10.1); CHLORIDE 110 MMOL/L (99-107); CREATININE 1.14 MG/DL (0.60-1.10); MAGNESIUM 1.5 MG/DL (1.5-2.4); PHOSPHORUS 3.5 MG/DL (2.3-4.5); POTASSIUM 3.3 MMOL/L (3.5-5.1); PROTHROMBIN TIME 15.4 SECONDS (9.0-12.0); SODIUM 148 MMOL/L (135-145); TOTAL CARBON DIOXIDE 31.7 MMOL/L (24-32); TOTAL PROTEIN 6.5 G/DL (6.4-8.2); TRIGLYCERIDES 32 MG/DL (20-135); eGFR 66 ML/MIN
[2018-09-06 04:32] LABS: INR 1.6 INR; PARTIAL THROMBOPLASTIN TIME 39 SECONDS (22-32)
[2018-09-06 04:33] LABS: GLUCOSE 122 MG/DL (70-104)
[2018-09-06 04:44] LABS: BASOPHILS % (AUTO) 0.1 % (0-1); EOSINOPHILS # (AUTO) 0.1 X10'3 (0-0.9); EOSINOPHILS % (AUTO) 2.7 % (0-6); HEMATOCRIT 26.1 % (42.0-52.0); HEMOGLOBIN 8.5 g/dl (14.0-17.9); LYMPHOCYTES # (AUTO) 0.4 X10'3 (1.1-4.8); LYMPHOCYTES % (AUTO) 8.4 % (21-51); MEAN CORPUSCULAR HEMOGLOBIN 31.6 PG (27.0-31.0); MEAN CORPUSCULAR HGB CONC 32.7 % (33.0-36.5); MEAN CORPUSCULAR VOLUME 96.4 FL (78-98); MEAN PLATELET VOLUME 9.9 FL (7.4-10.4); MONOCYTES # (AUTO) 0.6 X10'3 (0-0.9); MONOCYTES % (AUTO) 13.3 % (2-12); NEUTROPHILS # (AUTO) 3.4 X10'3 (1.8-7.7); NEUTROPHILS % (AUTO) 75.5 % (42-75); RED CELL DISTRIBUTION WIDTH 24.6 % (11.5-14.5); WHITE BLOOD COUNT 4.6 X10'3 (4.5-11.0)
[2018-09-06 04:56] LABS: PLATELET COUNT 37 X10'3 (140-440)
[2018-09-06] MEDS: methylnaltrexone br 12mg/0.6ml inj***SubQ only SQ SCH (08:00)
[2018-09-06] MEDS: nystatin 15 GM powder TP SCH ×3 (08:16→20:24)
[2018-09-06] MEDS: pantoprazole 40 MG vial IV SCH ×2 (08:16→20:23)
[2018-09-06] MEDS: furosemide 40mg/4ml inj IV SCH ×2 (08:16→20:23)
[2018-09-06] MEDS: HYDROcodone/acetaminophen 5mg/325mg tablet PO PRN (14:49)
[2018-09-06] MEDS ORDERED: morphine 4 MG/ML inj SYRINge IV PRN (15:15)
[2018-09-06] MEDS: morphine 4 MG/ML inj SYRINge IV PRN ×2 (15:35→22:39)
[2018-09-06] MEDS: propranolol 10mg tablet PO SCH ×2 (15:35→20:23)
[2018-09-07] VITALS (9 sets, daily range): BP systolic 108–171; BP diastolic 54–76
[2018-09-07] MEDS: piperacillin/tazo 3.375gm/50ml 50 ML IV SCH ×2 (02:13→08:47)
[2018-09-07] MEDS: mineral oil/petrolatum ophthal oint EACHEYE SCH (02:13)
[2018-09-07 02:44] LABS: BASOPHILS % (AUTO) 0.2 % (0-1); EOSINOPHILS # (AUTO) 0.1 X10'3 (0-0.9); EOSINOPHILS % (AUTO) 1.9 % (0-6); HEMATOCRIT 27.9 % (42.0-52.0); LYMPHOCYTES # (AUTO) 0.6 X10'3 (1.1-4.8); MEAN CORPUSCULAR HEMOGLOBIN 31.1 PG (27.0-31.0); MEAN CORPUSCULAR HGB CONC 32.4 % (33.0-36.5); MEAN PLATELET VOLUME 10.1 FL (7.4-10.4); MONOCYTES # (AUTO) 0.7 X10'3 (0-0.9); MONOCYTES % (AUTO) 10.5 % (2-12); NEUTROPHILS # (AUTO) 5.4 X10'3 (1.8-7.7); NEUTROPHILS % (AUTO) 79.4 % (42-75); RED BLOOD COUNT 2.91 X10'6 (4.70-6.10); WHITE BLOOD COUNT 6.9 X10'3 (4.5-11.0)
[2018-09-07 02:53] LABS: PLATELET COUNT 42 X10'3 (140-440)
[2018-09-07 02:59] LABS: ALANINE AMINOTRANSFERASE 22 U/L (12-78); ALBUMIN/GLOBULIN RATIO 0.4 (1.1-1.5); ALKALINE PHOSPHATASE 100 IU/L (46-116); ANION GAP 6 (8-16); ASPARTATE AMINO TRANSFERASE 35 U/L (10-37); BLOOD UREA NITROGEN 47 MG/DL (7-18); BUN/CREATININE RATIO 46.5 (5.4-32.0); CALCIUM 7.6 MG/DL (8.5-10.1); CHLORIDE 110 MMOL/L (99-107); CREATININE 1.01 MG/DL (0.60-1.10); MAGNESIUM 1.5 MG/DL (1.5-2.4); SODIUM 147 MMOL/L (135-145); TOTAL CARBON DIOXIDE 31.4 MMOL/L (24-32); TOTAL PROTEIN 6.7 G/DL (6.4-8.2); eGFR 76 ML/MIN
[2018-09-07 03:00] LABS: INR 1.6 INR; PARTIAL THROMBOPLASTIN TIME 40 SECONDS (22-32)
[2018-09-07 03:01] LABS: GLUCOSE 116 MG/DL (70-104)
[2018-09-07 03:03] LABS: POTASSIUM 2.9 MMOL/L (3.5-5.1)
[2018-09-07] MEDS: ipratropium/albuterol 3ml nebule NEB SCH ×2 (03:38→07:44)
[2018-09-07] MEDS: potassium Cl 40MEQ/250ML bag 250 ML IV PRN ×2 (04:01→06:42)
[2018-09-07] MEDS: nystatin 15 GM powder TP SCH (07:21)
[2018-09-07] MEDS: propranolol 10mg tablet PO SCH (07:21)
[2018-09-07] MEDS: pantoprazole 40 MG vial IV SCH (08:47)
[2018-09-07] MEDS: furosemide 40mg/4ml inj IV SCH (08:47)
[2018-09-07] MEDS ORDERED: rocuronium 10mg/ml inj IV ONE (09:00)
== END 2018-09-07 10:30 | DRG 4 ==
LOC: ER 10:17 → ED HOLD 16:31 → EDBEDREQSVC 08-12 04:57 → EDBEDREQ 08-12 04:57 → CICU 2S 08-12 11:30 → ICU 2S 08-13 21:20
PROVIDERS: ADMIT Internal Medicine; ATTEND Internal Medicine
PROC: 0BH17EZ Insertion of Endotracheal Airway into Trachea, Via Natural or Artificial Opening (ICD-10-PCS; 2018-08-11)
PROC: 30233R1 Transfusion of Nonautologous Platelets into Peripheral Vein, Percutaneous Approach (ICD-10-PCS; 2018-08-11)
PROC: 30233N1 Transfusion of Nonautologous Red Blood Cells into Peripheral Vein, Percutaneous Approach (ICD-10-PCS; 2018-08-11)
PROC: 5A09357 Assistance with Respiratory Ventilation, Less than 24 Consecutive Hours, Continuous Positive Airway Pressure (ICD-10-PCS; 2018-08-11)
PROC: 30233N1 Transfusion of Nonautologous Red Blood Cells into Peripheral Vein, Percutaneous Approach (ICD-10-PCS; principal; 2018-08-12)
PROC: 5A1955Z Respiratory Ventilation, Greater than 96 Consecutive Hours (ICD-10-PCS; 2018-08-12)
PROC: 30233R1 Transfusion of Nonautologous Platelets into Peripheral Vein, Percutaneous Approach (ICD-10-PCS; 2018-08-13)
PROC: 02HV33Z Insertion of Infusion Device into Superior Vena Cava, Percutaneous Approach (ICD-10-PCS; 2018-08-13)
PROC: B548ZZA Ultrasonography of Superior Vena Cava, Guidance (ICD-10-PCS; 2018-08-13)
PROC: 3E02340 Introduction of Influenza Vaccine into Muscle, Percutaneous Approach (ICD-10-PCS; 2018-08-13)
PROC: 30233N1 Transfusion of Nonautologous Red Blood Cells into Peripheral Vein, Percutaneous Approach (ICD-10-PCS; 2018-08-14)
PROC: 30233N1 Transfusion of Nonautologous Red Blood Cells into Peripheral Vein, Percutaneous Approach (ICD-10-PCS; 2018-08-15)
PROC: 5A1955Z Respiratory Ventilation, Greater than 96 Consecutive Hours (ICD-10-PCS; 2018-08-17)
PROC: 0BH17EZ Insertion of Endotracheal Airway into Trachea, Via Natural or Artificial Opening (ICD-10-PCS; 2018-08-17)
PROC: 30233R1 Transfusion of Nonautologous Platelets into Peripheral Vein, Percutaneous Approach (ICD-10-PCS; 2018-08-27)
PROC: 0DJ08ZZ Inspection of Upper Intestinal Tract, Via Natural or Artificial Opening Endoscopic (ICD-10-PCS; 2018-08-27)
PROC: 0DH63UZ Insertion of Feeding Device into Stomach, Percutaneous Approach (ICD-10-PCS; 2018-08-27)
PROC: 30233R1 Transfusion of Nonautologous Platelets into Peripheral Vein, Percutaneous Approach (ICD-10-PCS; 2018-09-01)
PROC: 30233R1 Transfusion of Nonautologous Platelets into Peripheral Vein, Percutaneous Approach (ICD-10-PCS; 2018-09-02)
PROC: 0W9B3ZZ Drainage of Left Pleural Cavity, Percutaneous Approach (ICD-10-PCS; 2018-09-02)
PROC: 0B113F4 Bypass Trachea to Cutaneous with Tracheostomy Device, Percutaneous Approach (ICD-10-PCS; 2018-09-03)
PROC: 30233R1 Transfusion of Nonautologous Platelets into Peripheral Vein, Percutaneous Approach (ICD-10-PCS; 2018-09-03)
PROC: 02HV33Z Insertion of Infusion Device into Superior Vena Cava, Percutaneous Approach (ICD-10-PCS; 2018-09-03)
PROC: B548ZZA Ultrasonography of Superior Vena Cava, Guidance (ICD-10-PCS; 2018-09-03)
PROC: 30233R1 Transfusion of Nonautologous Platelets into Peripheral Vein, Percutaneous Approach (ICD-10-PCS; 2018-09-05)
PROC: 30233R1 Transfusion of Nonautologous Platelets into Peripheral Vein, Percutaneous Approach (ICD-10-PCS; 2018-09-06)
DX: J96.00 Acute respiratory failure, unspecified whether with hypoxia or hypercapnia (principal); I46.9 Cardiac arrest, cause unspecified; J18.9 Pneumonia, unspecified organism; K92.2 Gastrointestinal hemorrhage, unspecified; Z68.43 Body mass index [BMI] 50.0-59.9, adult; E46 Unspecified protein-calorie malnutrition; E87.0 Hyperosmolality and hypernatremia; N39.0 Urinary tract infection, site not specified; N17.9 Acute kidney failure, unspecified; I50.30 Unspecified diastolic (congestive) heart failure; K72.90 Hepatic failure, unspecified without coma; B18.2 Chronic viral hepatitis C; I95.9 Hypotension, unspecified; D64.9 Anemia, unspecified; E66.01 Morbid (severe) obesity due to excess calories; D69.6 Thrombocytopenia, unspecified; R13.10 Dysphagia, unspecified; G47.30 Sleep apnea, unspecified; K74.60 Unspecified cirrhosis of liver; Z23 Encounter for immunization; Z79.899 Other long term (current) drug therapy
CPT/HCPCS: 31645; 32557; 36415; 36430; 36569; 36600; 70450; 71045; 71250; 74018; 76937; 80048; 80053; 80069; 80305; 80320; 80329; 81001; 81002; 81003; 82140; 82272; 82330; 82550; 82553; 82570; 82800; 82803; 82810; 82948; 83605; 83735; 83880; 84100; 84132; 84134; 84145; 84156; 84300; 84439; 84443; 84478; 84484; 84540; 85018; 85025; 85027; 85610; 85730; 86885; 86900; 86901; 86920; 87040; 87070; 87077; 87088; 87186; 93005; 93308; 94002; 94003; 94640; 94660; 94668; 94760; 96361; 96374; 96379; 97161; 97530; 99285; A4623; A7521; C1894; C9113; G0378; J0131; J0171; J0885; J1940; J1956; J2001; J2020; J2250; J2270; J2543; J2704; J2765; J3010; J3430; J3475; J3480; J3490; J7030; J7060; P9016; P9035; P9047; Q2037; Q9963